=== PATIENT | male | born 1940 | race Caucasian/White ===

== ENCOUNTER → 2018-07-28 06:24 | Outpatient (CLI) | payer MEDICARE, OTHER, SELFPAY ==
[2018-07-28 07:40] LABS: AST(SGOT) 36 U/L (15-37); Alanine Aminotransfer ALT/SGPT 32 U/L (16-61); Albumin, Serum 3.6 g/dL (3.2-5.0); Alkaline Phosphatase 80 U/L (45-117); Cholesterol 135 mg/dL (200); Globulin 3.4 g/dL (2.2-4.2); High Density Lipoprotein 49 mg/dL; Triglycerides 89 mg/dL; Very Low Density Lipoprotein 18 mg/dL (5-40)
--- NOTE | 2018-07-28 11:21 | STRESSREP ---
Stress Test Report Exercise myocardial perfusion stress test. 77-year-old man with a history of coronary artery disease status post carotid bypass surgery. Stress protocol: Resting EKG demonstrates normal sinus rhythm with a rate of 59 bpm normal intervals and noted resting blood pressure 148/78 mmHg. The patient exercised according to regular Chao protocol for total duration of 4 minutes attaining 104 bpm and 72% of maximum predicted heart rate and a workload of 5.8 metabolic equivalents. It was felt that he would not achieve target heart rate and so the test was switched to a pharmacologic myocardial perfusion stress test. 0.4 mg of regadenoson was then infused per usual protocol continuous EKG monitoring was performed. The maximum heart rate attained was 79 bpm which was 55% of maximum predicted heart rate. At rest and during infusion there were no ST or T wave changes noted suggest ischemia during stress testing no EKG changes were noted suggest ischemia. Myocardial perfusion protocol. 10.9 mCi of technetium 99m sestamibi was injected at rest. 0.4 mg of regadenoson was infused per usual protocol peak infusion 31.9 mCi of technetium 99m sestamibi was injected stress images were obtained stress and rest images were reconstructed and compared in the short axis vertical long horizontal long axis. Gated images were also obtained Perfusion SPECT analysis: Review of the stress images demonstrate normal uptake of tracer noted in all areas of the myocardium. The resting images similarly demonstrate normal uptake of tracer noted in all areas of the myocardium. No areas of reversibility are noted suggest ischemia no previous infarct is noted. Gated SPECT analysis: The gated ejection fraction is 67%. Conclusion: Normal pharmacologic myocardial perfusion stress test. Preserved ejection fraction.
== END ==
PROVIDERS: Family Provider Family Medicine; PCP Family Medicine; Referring Provider Internal Medicine Cardiovascular Disease; Visit Provider Internal Medicine Cardiovascular Disease
DX: I25.10 Atherosclerotic heart disease of native coronary artery without angina pectoris (principal); E78.5 Hyperlipidemia, unspecified; Z95.1 Presence of aortocoronary bypass graft
CPT/HCPCS: 36415; 78452; 80061; 80076; 93017; A9500; A4216; J2785

== ENCOUNTER → 2019-06-24 09:09 | Outpatient (CLI) | payer MEDICARE, OTHER, SELFPAY ==
[2018-07-10 13:21] VITALS: BMI 21.5
[2019-06-24 09:56] LABS: Hematocrit 38.3 % (40-54); Hemoglobin 12.3 g/dL (13.0-16.5); Mean Corp Hgb Conc 32.1 g/dL (32-36); Mean Corpuscular Hgb 32.5 pg (27.0-32.0); Mean Corpuscular Volume 101.3 fL (80-94); Platelet Count 181 K/mm3 (150-450); RBC Distribution Width CV 12.6 % (11.6-14.6); RBC Distribution Width SD 47.8 fl (35.1-43.9); Red Blood Count 3.78 M/mm3 (4.6-6.2); White Blood Count 6.1 K/mm3 (4.4-11.0)
[2019-06-24 10:17] LABS: Microalbumin,Random Urine 10.1 mg/L (NO RANGE EST.); Microalbumin:Creatinine Ratio 10.1 mg/g CRE (<30 mg/g CRE)
[2019-06-24 10:38] LABS: ALB/GLOB Ratio 1.1 RATIO (0.9-2.4); AST(SGOT) 18 U/L (15-37); Alanine Aminotransfer ALT/SGPT 17 U/L (16-61); Albumin, Serum 3.5 g/dL (3.2-5.0); Alkaline Phosphatase 75 U/L (45-117); Anion Gap 7 (5-15); BUN 9 mg/dL (7-18); BUN/Creat Ratio 12.1 RATIO (10-20); Calcium,Total 8.7 mg/dL (8.5-10.1); Chloride 108 mmol/L (98-107); Cholesterol 128 mg/dL (200); Creatinine, Serum 0.74 mg/dL (0.70-1.30); EST Glomerular Filtration Rate 108 mL/min (>60); Est Glom Filt Rate - Afr Amer 130 mL/min (>60); Globulin 3.3 g/dL (2.2-4.2); Glucose 101 mg/dL (74-106); High Density Lipoprotein 57 mg/dL; Potassium 4.3 mmol/L (3.5-5.1); Protein, Total 6.8 g/dL (6.4-8.2); Sodium Level 143 mmol/L (136-145); Triglycerides 67 mg/dL; Very Low Density Lipoprotein 13 mg/dL (5-40)
== END ==
PROVIDERS: Family Provider Family Medicine; PCP Family Medicine; Referring Provider Family Medicine; Visit Provider Family Medicine
DX: I10 Essential (primary) hypertension (principal); E78.5 Hyperlipidemia, unspecified; D64.9 Anemia, unspecified
CPT/HCPCS: 36415; 80053; 80061; 82043; 82570; 85027

== ENCOUNTER → 2019-07-06 14:58 | Outpatient (CLI) | payer MEDICARE, OTHER, SELFPAY ==
--- NOTE | 2019-07-06 15:01 | CT_ITS ---
STUDY: LOW DOSE CT LUNG CANCER SCREENING REASON FOR EXAM: Male, 78 years old. 30 pack-year history. RADIATION DOSAGE (If Supplied By Facility): CTDIvol = ( 2.01 ) mGy, DLP = ( 78.76 ) mGycm TECHNIQUE: No contrast was administered. Low dose technique was utilized (average mAS-38 and kVp 120). 1.25 mm axial source images with a slice interval of 1.25-mm were reconstructed in lung windows. 2.5 mm axial source images with a slice interval of 2.5-mm were reconstructed in lung windows. 5.0 mm axial source images with a slice interval of 5.0-mm were reconstructed in soft tissue windows. Nodule measured using lung windows on PACS and/or independent workstation with automated measurement of minimum and maximum diameter. Nodule measurement reported as average diameter rounded to the nearest whole number. Growth is defined as an increase ins size of greater than 1.5 mm. COMPARISON: June 11, 2016. NODULES: Total lung nodules (excluding granulomas): 0 Emphysema: There are diffuse emphysematous changes with mild bronchiectasis at the lung bases. Endobronchial lesion: No Aorta: Atherosclerotic changes without aneurysm or dissection. Coronary arteries: Diffuse coronary artery calcifications. Heart: Normal in size Pulmonary artery: Normal Mediastinal nodes: There are small prevascular AP window and paratracheal lymph nodes unchanged from prior study. Other chest and abdominal findings: There are degenerative changes of the thoracic spine. CT/Low Dose CT Lung Screening IMPRESSION: Lung-RADS category 1 - Continue annual screening with LDCT in 12 months. IMPORTANT NOTES FOR USE: ACR Lung-RADS Version 1.0 Assessment Categories Release Date: February 22, 2014 Category: Coded 0-4 bases on nodule(s) with highest degree of suspicion. Negative screen is defined as categories 1 and 2; a positive screen is defined as categories 3 and 4. Category 3 and 4A nodules that are unchanged on interval CT should be coded as category 2, and individuals returned to screening in 12 months. Category 4X: Category 3 or 4 nodules with additional imaging findings that increase the suspicion of lung cancer, such as spiculation, GGN that doubles in size in 1 year, enlarged lymph notes, etc. Category Modifiers: S (significant finding unrelated to lung cancer) and C (prior history of treated lung cancer) may be added to the 0-4 Lung-RADS Electronically Signed: Eliseo Morris DO at 16:55 EDT Tel [phone], Service support ,
== END ==
PROVIDERS: Family Provider Family Medicine; PCP Family Medicine; Referring Provider Family Medicine; Visit Provider Family Medicine
DX: Z12.2 Encounter for screening for malignant neoplasm of respiratory organs (principal); Z87.891 Personal history of nicotine dependence
CPT/HCPCS: G0297

== ENCOUNTER → 2019-12-23 16:01 | Outpatient (CLI) | payer MEDICARE, OTHER, SELFPAY ==
[2019-07-07 10:05] VITALS: BMI 21.5
[2019-12-23 17:30] LABS: Hematocrit 36.9 % (40-54); Hemoglobin 11.9 g/dL (13.0-16.5); Mean Corp Hgb Conc 32.2 g/dL (32-36); Mean Corpuscular Volume 102.2 fL (80-94); Mean Platelet Vol. 11.2 fl (6.2-12.0); Platelet Count 176 K/mm3 (150-450); RBC Distribution Width SD 45.1 fl (35.1-43.9); Red Blood Count 3.61 M/mm3 (4.6-6.2)
[2019-12-23 18:07] LABS: Microalbumin,Random Urine 16.1 mg/L (NO RANGE EST.); Microalbumin:Creatinine Ratio 9.4 mg/g CRE (<30 mg/g CRE)
[2019-12-23 18:10] LABS: ALB/GLOB Ratio 1.3 RATIO (0.9-2.4); AST(SGOT) 19 U/L (15-37); Alanine Aminotransfer ALT/SGPT 24 U/L (16-61); Albumin, Serum 3.8 g/dL (3.2-5.0); Alkaline Phosphatase 77 U/L (45-117); Anion Gap 4 (5-15); BUN 12 mg/dL (7-18); BUN/Creat Ratio 13.3 RATIO (10-20); Calcium,Total 8.5 mg/dL (8.5-10.1); Chloride 110 mmol/L (98-107); EST Glomerular Filtration Rate 87 mL/min (>60); Est Glom Filt Rate - Afr Amer 105 mL/min (>60); Globulin 2.9 g/dL (2.2-4.2); Glucose 89 mg/dL (74-106); Potassium 3.9 mmol/L (3.5-5.1); Protein, Total 6.7 g/dL (6.4-8.2); Sodium Level 141 mmol/L (136-145)
== END ==
PROVIDERS: PCP Family Medicine; Referring Provider Family Medicine; Visit Provider Family Medicine
DX: I25.10 Atherosclerotic heart disease of native coronary artery without angina pectoris (principal); I10 Essential (primary) hypertension
CPT/HCPCS: 36415; 80053; 82043; 82570; 85027

== ENCOUNTER → 2019-12-30 17:08 | Outpatient (CLI) | payer MEDICARE, OTHER, SELFPAY ==
[2019-07-07 10:05] VITALS: BMI 21.5
--- NOTE | 2019-12-30 17:12 | CT_ITS ---
STUDY: CT CHEST WITHOUT CONTRAST- LOW DOSE SCREENING PROTOCOL REASON FOR EXAM: Male, 79 years old. Current smoker. 50 pack per year history. No current symptoms of lung cancer or pulmonary infection. Shared decision-making with referring PCP documented in patient''s record. RADIATION DOSAGE (If Supplied By Facility): CTDIvol = ( 2.01 ) mGy, DLP = ( 72.73 ) mGycm TECHNIQUE: Low dose screening CT examination performed from the base of the neck to the upper abdomen. Sagittal and coronal reformatted images performed. Sagittal and coronal MIP images provided. The measurements provided are average, rounded measurements per ACR guidelines. COMPARISON: None. FINDINGS: Status post median sternotomy. Mild emphysematous changes. Mild bilateral apical scarring. No noncalcified nodule or mass. Elevated left hemidiaphragm with some left lower lobe atelectasis. Normal heart and pericardium. There are calcifications of the coronary arteries. Normal mediastinum. Normal hilar regions. Normal unenhanced pulmonary arteries. Normal aorta arch and descending thoracic aorta. Normal osseous structures. There is no demonstrated abnormality of the visualized upper abdomen. CT/Low Dose CT Lung Screening IMPRESSION: 1. No significant indeterminate incidental findings requiring additional imaging. 2. Incidental findings include mild emphysematous changes in bilateral apical scarring.. ASSESSMENT CATEGORY: LungRADS 1 - Negative. Continue annual screening with LDCT in 12 months, per established ACR guidelines. Electronically Signed: Troy Stark MD at 8:30 EST Tel , Service support ,
== END ==
PROVIDERS: PCP Family Medicine; Referring Provider Family Medicine; Visit Provider Family Medicine
DX: F17.210 Nicotine dependence, cigarettes, uncomplicated (principal)
CPT/HCPCS: G0297

== ENCOUNTER → 2020-05-16 | Outpatient (CLI) | payer MEDICARE, OTHER, SELFPAY ==
[2020-05-04 11:38] VITALS: BMI 22.0
--- NOTE | 2020-05-16 09:50 | CDU_ITS ---
Reason For Study: Stenosis Rt. Velocities/BP Lt. Velocities/BP Prox CCA 105/20 cm/sec. Prox CCA 103/15 cm/sec. Mid CCA 123/23 cm/sec. Mid CCA 79/17 cm/sec. Dist CCA 164/27 cm/sec. Dist CCA 110/23 cm/sec. Prox ICA 197/29 cm/sec. Prox ICA 142/21 cm/sec. Mid ICA 138/19 cm/sec. Mid ICA 100/24 cm/sec. Dist ICA 92/20 cm/sec. Dist ICA 88/23 cm/sec. Rt. ICA/CCA = 1.60. Lt. ICA/CCA = 1.80. Prox ECA 179/12 cm/sec. Prox ECA 133/8 cm/sec. Rt. Vert. 16 cm/sec. Lt. Vert. 66/16 cm/sec. Right Extracranial There is heterogeneous, irregular atherosclerotic plaque noted in the right common carotid artery. There is heterogeneous, irregular atherosclerotic plaque noted in the right internal carotid artery. There is heterogeneous, irregular atherosclerotic plaque noted in the right external carotid artery. Bidirectional flow noted Rt Vert A. Left Extracranial There is heterogeneous, irregular atherosclerotic plaque noted in the left common carotid artery. There is heterogeneous, irregular atherosclerotic plaque noted in the left internal carotid artery. There is heterogeneous, irregular atherosclerotic plaque noted in the left external carotid artery. Antegrade flow is noted in the left vertebral artery. Procedure Carotid Duplex 20750. Exam performed in department. Interpretation Summary Moderate (50-69%) stenosis right extracranial internal carotid. Moderate (50-69%) stenosis left extracranial internal carotid. Flow within the right verterbral artery is bidirectional, consistent with a subclavian steal phenomenon. Flow within the left verterbral artery is antegrade. Ordering Physician: Arnav Zamora Referring Physician: Aj Nazario Performed By: Stacy Swenson, RDCS, RVT
== END | disposition home or self-care (01) ==
LOC: CVS 09:50
PROVIDERS: PCP Family Medicine; Referring Provider Internal Medicine Cardiovascular Disease; Visit Provider Internal Medicine Cardiovascular Disease
DX: I65.23 Occlusion and stenosis of bilateral carotid arteries (principal); I25.10 Atherosclerotic heart disease of native coronary artery without angina pectoris; E78.5 Hyperlipidemia, unspecified; F17.200 Nicotine dependence, unspecified, uncomplicated; I10 Essential (primary) hypertension; Z95.1 Presence of aortocoronary bypass graft
CPT/HCPCS: 93880

== ENCOUNTER 2021-07-16 09:02 | Inpatient (IN) | payer MEDICARE, OTHER, SELFPAY ==
[2021-07-16] VITALS (21 sets, daily range): BP systolic 82–127; BP diastolic 49–78; PULSE 68–120; RESP 14–34; TEMP 35.9–37; O2SAT 83–100; BMI 22.1; BMI 20.4
--- NOTE | 2021-07-16 09:04 | ED.RN ---
DAUGHTER JOSEPHINE REYES [phone]
--- NOTE | 2021-07-16 09:20 | RAD_ITS ---
STUDY: X-RAY CHEST REASON FOR EXAM: Male, 80 years old. SOB TECHNIQUE: Single AP portable view of the chest. COMPARISON: None. FINDINGS: Status post median sternotomy. Patchy alveolar opacities in both lungs consistent with bilateral pneumonia. There is no demonstrated pleural abnormality. Normal size heart. Normal mediastinum and kristi. Normal visualized pulmonary arteries. Normal visualized aortic arch and descending thoracic aorta. Normal visualized thoracic spine. Normal visualized ribs, clavicles, and shoulders. There is no demonstrated abnormality of the visualized soft tissue structures of the upper abdomen. RAD/Chest 1 View (Portable) IMPRESSION: Patchy bilateral pneumonia. Electronically Signed: Troy Stark MD at 10:16 EDT Tel , Service support ,
--- NOTE | 2021-07-16 09:20 | EKG12_ITS ---
Test Reason : SOB Blood Pressure : / mmHG Vent. Rate : 073 BPM Atrial Rate : 073 BPM P-R Int : 166 ms QRS Dur : 076 ms QT Int : 410 ms P-R-T Axes : 053 -24 023 degrees QTc Int : 451 ms Normal sinus rhythm Normal ECG Confirmed by DEMETRA GARAY, NEELIMA ([id number]), editor farm journal MATT TONG ([id number]) on 07/18/2021 1:44:14 PM Referred By: RIRI Confirmed By:NEELIMA MCCRARY MD
--- NOTE | 2021-07-16 09:49 | EX.ED.DYSGE1 ---
HPI History of Present Illness Chief Complaint: Shortness of Breath Informant: patient and EMS Narrative Narrative: Patient presents via EMS secondary to increased shortness of breath. He is reportedly a known positive Covid. Patient is confused and is unable to tell me when he tested positive for Covid or when he got symptoms. He denies abdominal or chest pain. He does report cough and shortness of breath. [facility] Medical History (Updated 07/16/21 @ 15:[address] Arnav Galvez DO) Atherosclerosis of coronary artery of [place] heart without angina pectoris Bilateral carotid artery stenosis COPD (chronic obstructive pulmonary disease) Essential (primary) hypertension HLD (hyperlipidemia) Nicotine dependence Home Medications aspirin 81 mg tablet,delayed release 81 mg PO DAILY 05/04/20 [History Last Taken Unknown] rosuvastatin 40 mg tablet 20 mg PO DAILY tab 05/04/20 [History Last Taken Unknown] metoprolol succinate 25 mg tablet,extended release 24 hr 25 mg PO DAILY #90 tab 04/28/21 [Rx Last Taken Unknown] Allergy/AdvReac Type Severity Reaction Status Date / Time No Known Allergies Allergy Unverified 01/30/21 11:30 Family History Father CAD (coronary artery disease) Hypertension Mother Hypertension Brother CAD (coronary artery disease) Surgical History 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) History of tonsillectomy Social History Smoking Status: Current every day smoker tobacco type: cigarettes alcohol intake: former ROS ROS ED Review of Systems ROS Unobtainable: due to mental condition and other Details: Patient with confusion and difficult to obtain any review of systems. Cardiovascular Cardiovascular: Denies chest pain Respiratory/Chest Respiratory/Chest: Reports cough and dyspnea Gastrointestinal Gastrointestinal: Denies abdominal pain EXAM Physical Exam Const Vital Signs: 07/16/21 09:05 07/16/21 09:07 07/16/21 09:12 Temperature 98.2 F Temperature Source Oral Pulse Rate 84 Respiratory Rate 34 H Respiratory Effort Respiratory Depth Respiratory Pattern Blood Pressure 125/73 H Blood Pressure Mean 90 Pulse Ox 83 84 92 Oxygen Delivery Method Room Air Nasal Cannula Nasal Cannula Oxygen Flow Rate (L/min) 4 4 07/16/21 09:51 07/16/21 11:43 07/16/21 12:52 Temperature 98.4 F Temperature Source Oral Pulse Rate 120 H 119 H Respiratory Rate 20 H 22 H 22 H Respiratory Effort Short of Breath Labored Accessory Muscle Use Respiratory Depth Shallow Respiratory Pattern Tachypnea Blood Pressure 94/74 82/69 L Blood Pressure Mean 80 73 Pulse Ox 93 97 92 Oxygen Delivery Method Nasal Cannula Nasal Cannula Nasal Cannula Oxygen Flow Rate (L/min) 4 6 6 07/16/21 14:23 07/16/21 14:32 Temperature 98.6 F Temperature Source Oral Pulse Rate 113 H 82 Respiratory Rate 28 H 20 H Respiratory Effort Respiratory Depth Respiratory Pattern Blood Pressure 93/63 86/49 L Blood Pressure Mean 73 61 Pulse Ox 94 95 Oxygen Delivery Method Nasal Cannula Nasal Cannula Oxygen Flow Rate (L/min) 5 6 Positive well nourished and well developed General Appearance ED: well developed Eyes PERRL and EOMs intact bilaterally Neck supple Chest Wall inspection of chest normal and palpation of chest normal Resp Resp Narrative: Tachypnea Auscultation: diminished lung sounds Cardio regular rate and regular rhythm GI normal to inspection, nondistended, normoactive bowel sounds and non-tender Palpation: soft Extremity normal to inspection Neuro No oriented x3 Neuro Narrative: No focal neurologic deficits. Patient confused. Sensorium / Orientation: alert Skin no rashes or lesions noted MDM MDM MDM Narrative Medical decision making narrative: EKG, chest x-ray, lab work obtained. Lab Data Attestation: I reviewed the patient's lab results. Labs: Laboratory Results - last 24 hr 07/16/21 07/16/21 07/16/21 09:44 10:12 10:12 WBC 3.7 L RBC 3.50 L Hgb 11.7 L Hct 35.8 L MCV 102.3 H MCH 33.4 H MCHC 32.7 RDW Std Deviation 46.7 H RDW Coeff of Jakub 12.5 Plt Count 102 L MPV 11.3 Immature Gran % (Auto) 0.300 Neut % (Auto) 80.2 H Lymph % (Auto) 9.6 L [place] % (Auto) 9.9 Eos % (Auto) 0.0 Baso % (Auto) 0.0 Absolute Neuts (auto) 2.9 Absolute Lymphs (auto) 0.35 L Nucleated RBC % 0 Diff Path Review May foll Platelet Estimate SLT DEC Hypochromasia RARE Macrocytosis 1+ D-Dimer Quant (PE/DVT) Sodium 140 Potassium 3.8 Chloride 106 Carbon Dioxide 28.0 Anion Gap 6 BUN 16 Creatinine 0.84 Estim Creat Clear Calc 67.66 Est GFR (MDRD) Af Amer 114 Est GFR (MDRD) Non-Af 94 BUN/Creatinine Ratio 19.2 Glucose 155 H Lactic Acid Calcium 8.1 L Total Bilirubin 0.30 Direct Bilirubin 0.19 AST 57 H ALT 23 Alkaline Phosphatase 58 Troponin I High Sens 18 Total Protein 6.7 Albumin 3.0 L Globulin 3.7 Urine Color Yellow Urine Clarity Clear Urine pH 5.0 Ur Specific [place] 1.020 Urine Protein 100 H Urine Glucose (UA) 50 H Urine Ketones 150 A* Urine Occult Blood 150 H Urine Nitrite Negative Urine Bilirubin Negative Urine Urobilinogen Normal Ur Leukocyte Esterase Negative Urine RBC 5-10 SEEN Urine WBC 0 SEEN Ur Squamous Epith Cells 0-5 SEEN Urine Bacteria RARE Urine Mucus 0 SEEN 07/16/21 07/16/21 07/16/21 10:12 10:12 14:30 WBC RBC Hgb Hct MCV MCH MCHC RDW Std Deviation RDW Coeff of Jakub Plt Count MPV Immature Gran % (Auto) Neut % (Auto) Lymph % (Auto) [place] % (Auto) Eos % (Auto) Baso % (Auto) Absolute Neuts (auto) Absolute Lymphs (auto) Nucleated RBC % Diff Path Review Platelet Estimate Hypochromasia Macrocytosis D-Dimer Quant (PE/DVT) 1.11 H* Sodium Potassium Chloride Carbon Dioxide Anion Gap BUN Creatinine Estim Creat Clear Calc Est GFR (MDRD) Af Amer Est GFR (MDRD) Non-Af BUN/Creatinine Ratio Glucose Lactic Acid 2.3 H* Cancelled Calcium Total Bilirubin Direct Bilirubin AST ALT Alkaline Phosphatase Troponin I High Sens Total Protein Albumin Globulin Urine Color Urine Clarity Urine pH Ur Specific [place] Urine Protein Urine Glucose (UA) Urine Ketones Urine Occult Blood Urine Nitrite Urine Bilirubin Urine Urobilinogen Ur Leukocyte Esterase Urine RBC Urine WBC Ur Squamous Epith Cells Urine Bacteria Urine Mucus Rapid Covid test positive Radiography Chest X-Ray - ED: 1 View, Read by ED Physician, Chronic Changes and - (Chronic changes with patchy infiltrates.) Diagnostic Testing: Radiology Impression Chest X-Ray 07/16/21 09:20 IMPRESSION: Patchy bilateral pneumonia. Electronically Signed: Troy Stark MD at 10:16 EDT Tel , Service support , Chest CTA 07/16/21 10:[address] IMPRESSION: 1. No CT evidence of pulmonary embolism. 2. Bilateral subsegmental atelectasis or pneumonitis with left lower lobe pneumonia. Electronically Signed: Troy Stark MD at 12:48 EDT Tel , Service support , EKG Initial EKG: Attestation: I personally reviewed and interpreted this EKG as follows: Interpretation: Sinus Rhythm (Sinus at 73 with no acute ischemia.) Treatment and Re-Evaluation Comments:: Patient has been very confused in the emergency room and keeps wanting to take the cardiac leads off. He is agitated and intermittently trying to crawl out of bed. Lab work is reviewed. Renal function is normal. Lactic acid is mildly elevated. D-dimer is elevated. Patient is sent for CTA of the chest which reveals no evidence of PE. Patient has been in and out of atrial fibrillation. Heart rate will go up to the 120-130 range. With this blood pressure is slightly decreased into the 90s. Patient is given a 500 cc IV fluid bolus. Blood pressure is currently 111/76. Repeat EKG will be obtained. Once IV fluid bolus is done if heart rate remains elevated he received a small dose of metoprolol. Patient has been given a dose of Decadron and will be discussed with hospitalist for admission. Addendum: Patient's heart rate continue to fluctuate between 108 and 140s. Another 500 cc IV fluid bolus was ordered along with a small dose of Cardizem. Before this could be given patient converted back to sinus rhythm with heart rate in the 80s and 90s. Cardizem was never given. Discharge Plan Dx/Rx/DC Orders Clinical Impression: COVID-19, Hypoxia, New onset a-fib, Atrial fibrillation with rapid ventricular response Disposition Disposition: Acute Care Hospital [facility] Discharge Date/Time: 07/16/21 15:49
[2021-07-16 10:02] LABS: Mucous, Urine 0 SEEN /hpf (<or=2+); White Blood Cells 0 SEEN /hpf (0-5)
[2021-07-16 10:03] LABS: Color, Urine Yellow (Yellow); Glucose, Dipstick 50 mg/dl (Normal); Leukocyte Esterase-Dipstick Negative /ul (Negative); Nitrite-Dipstick Negative (Negative); Occult Blood-Urine 150 /ul (Negative); Protein-Dipstick 100 mg/dl (Negative); Urine Bilirubin Dipstick Negative (Negative); Urine Clarity Clear (Clear); Urine Urobilinogen Normal (Normal)
[2021-07-16 10:05] LABS: Ketone-Dipstick 150 mg/dl (Negative)
[2021-07-16 10:11] LABS: Bacteria RARE /hpf (None Seen); Red Blood Cells-Urine 5-10 SEEN /hpf (0-5); Squamous Epithelial Cells - UA 0-5 SEEN /hpf (0-5)
[2021-07-16 10:24] LABS: Absolute Lymphocyte Count 0.35 X10^3/uL (0.83-4.51); Absolute Neutrophil Count 2.9 X10^3/uL (2.0-7.7); Differential Indicated SCAN CRITERIA MET; Hematocrit 35.8 % (40-54); Hemoglobin 11.7 g/dL (13.0-16.5); Lymphocyte # 0.35 X10^3/ul (0.83-4.51); Lymphocyte % 9.6 % (19-41); Mean Corp Hgb Conc 32.7 g/dL (32-36); Mean Corpuscular Hgb 33.4 pg (27.0-32.0); Mean Corpuscular Volume 102.3 fL (80-94); Mean Platelet Vol. 11.3 fl (6.2-12.0); Monocyte# 0.36 X10^3/uL; Monocyte% 9.9 % (0-10); NRBC Flagged by Analyzer 0 % (0-5); Neutrophil # 2.93 X10^3/uL (2.7-7.7); Neutrophil % 80.2 % (47-70); POSITIVE DIFFERENTIAL YES; Platelet Count 102 K/mm3 (150-450); RBC Distribution Width CV 12.5 % (11.6-14.6); RBC Distribution Width SD 46.7 fl (35.1-43.9); White Blood Count 3.7 K/mm3 (4.4-11.0)
[2021-07-16 10:35] LABS: D-Dimer Quantitative (DVT/PE) 1.11 FEU/ug/m (0.27-0.49)
[2021-07-16] MEDS: dexAMETHasone 4 MG/ML Vial 6 MG IV (10:35)
[2021-07-16 10:43] LABS: AST(SGOT) 57 U/L (15-37); Alanine Aminotransfer ALT/SGPT 23 U/L (16-61); Alkaline Phosphatase 58 U/L (45-117); Anion Gap 6 (5-15); BUN 16 mg/dL (7-18); BUN/Creat Ratio 19.2 RATIO (10-20); Bilirubin, Direct 0.19 mg/dL (0.00-0.30); Calcium,Total 8.1 mg/dL (8.5-10.1); Chloride 106 mmol/L (98-107); Creatinine, Serum 0.84 mg/dL (0.70-1.30); EST Glomerular Filtration Rate 94 mL/min (>60); Est Glom Filt Rate - Afr Amer 114 mL/min (>60); Estimated Creatinine Clearance 67.66 ml/min; Globulin 3.7 g/dL (2.2-4.2); Glucose 155 mg/dL (74-106); Potassium 3.8 mmol/L (3.5-5.1); Protein, Total 6.7 g/dL (6.4-8.2); Sodium Level 140 mmol/L (136-145); Troponin-I HS 18 pg/mL (3.0-78.0)
[2021-07-16 10:44] LABS: Hypochromasia RARE; Macrocytosis 1+; Platelet Estimate SLT DEC (ADEQ)
[2021-07-16 10:50] LABS: Lactic Acid 2.3 mmol/L (0.4-1.9)
--- NOTE | 2021-07-16 10:56 | CT_ITS ---
STUDY: CTA CHEST REASON FOR EXAM: Male, 80 years old. sob,covid RADIATION DOSAGE (If Supplied By Facility): CTDIvol = ( 12.36 ) mGy, DLP = ( 462.95 ) mGycm TECHNIQUE: The examination was performed with the intravenous administration of IV 100mL Isovue-370. Post-processing of the angiographic images was performed, with multiplanar reformation and 3D reconstruction. Individualized dose optimization techniques were used for this CT. COMPARISON: Chest x-ray earlier today FINDINGS: Status post median sternotomy. Normal enhancement of the main pulmonary artery and right and left pulmonary arteries. Normal enhancement of the bilateral peripheral pulmonary arteries. There is no demonstrated pulmonary embolism. Normal thoracic aorta and visualized great vessels. There is no demonstrated aortic dissection. Normal heart and pericardium. Normal mediastinum. Normal hilar regions. Mild diffuse central bronchiectasis. The lungs are well expanded. Bilateral patchy groundglass opacities consistent with subsegmental atelectasis or pneumonitis. Alveolar density in the lower left lung consistent with left lower lobe pneumonia. Normal pleura. Normal chest wall structures. Normal osseous structures. Normal visualized upper abdomen. CT/CTA Chest W/WO Contrast IMPRESSION: 1. No CT evidence of pulmonary embolism. 2. Bilateral subsegmental atelectasis or pneumonitis with left lower lobe pneumonia. Electronically Signed: Troy Stark MD at 12:48 EDT Tel , Service support ,
--- NOTE | 2021-07-16 13:28 | NURSING ---
DR ALCANTARA FOR DR MENEZES
--- NOTE | 2021-07-16 13:41 | NURSING ---
ICU [facility]INT[facility] COVID, HYPOXIA, AFIB RVR, CONFUSION
--- NOTE | 2021-07-16 14:00 | EKG12_ITS ---
Test Reason : REPEAT Blood Pressure : / mmHG Vent. Rate : 108 BPM Atrial Rate : 060 BPM P-R Int : 000 ms QRS Dur : 086 ms QT Int : 366 ms P-R-T Axes : 000 -21 045 degrees QTc Int : 490 ms Atrial Fibrillation Nonspecific ST and T wave abnormality Abnormal ECG Confirmed by DEMETRA GARAY, NEELIMA ([id number]), photography editor MATT TONG ([id number]) on 07/18/2021 1:44:51 PM Referred By: RIRI Confirmed By:NEELIMA MCCRARY MD
--- NOTE | 2021-07-16 14:17 | NURSING ---
ICU 3
[2021-07-16 14:19] LABS: Reflex Lactate? Y
--- NOTE | 2021-07-16 14:55 | PCM.HP.STD ---
HPI - General General Date of Admission: 07/16/21 HPI Narrative JUNIOR MYLES, is a 80 M who presents with 9 days of feeling sick. Patient has been more confused and short of breath. Patient presented to the emergency room and notably hypoxic. While he was there he developed atrial fibrillation with RVR and hypotension. In the emergency room, patient received 6 mg of IV dexamethasone 1 L of IV fluids total and a 10 mg of IV diltiazem. Hospitalist service was contacted for further admission and management. Patient did have hypotension. Patient is also confused and unable provide any history. I was able to get hold the patient's daughter, Vernell. She states the patient has been sick for 9 days and he has just progressively gotten worse during this time. She states that normally he is very alert and oriented and witty. This is a significant change for him. She states that the patient was not vaccinated. [facility] Medical History (Updated 07/16/21 @ 15:[address] Arnav Galvez DO) Atherosclerosis of coronary artery of [place] heart without angina pectoris Bilateral carotid artery stenosis COPD (chronic obstructive pulmonary disease) Essential (primary) hypertension HLD (hyperlipidemia) Nicotine dependence Home Medications aspirin 81 mg tablet,delayed release 81 mg PO DAILY 05/04/20 [History Last Taken Unknown] rosuvastatin 40 mg tablet 20 mg PO DAILY tab 05/04/20 [History Last Taken Unknown] metoprolol succinate 25 mg tablet,extended release 24 hr 25 mg PO DAILY #90 tab 04/28/21 [Rx Last Taken Unknown] Allergy/AdvReac Type Severity Reaction Status Date / Time No Known Allergies Allergy Unverified 01/30/21 11:30 Family History Father CAD (coronary artery disease) Hypertension Mother Hypertension Brother CAD (coronary artery disease) Surgical History 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) History of tonsillectomy Social History Smoking Status: Current every day smoker tobacco type: cigarettes alcohol intake: former ROS Review of Systems ROS Unobtainable: due to encephalopathy Vital Signs Vital Signs Vital Signs: 07/16/21 09:05 07/16/21 09:07 07/16/21 09:12 Temperature 36.8 C Temperature Source Oral Pulse Rate 84 Respiratory Rate 34 H Respiratory Effort Respiratory Depth Respiratory Pattern Blood Pressure 125/73 H Blood Pressure Mean 90 Pulse Ox 83 84 92 Oxygen Delivery Method Room Air Nasal Cannula Nasal Cannula Oxygen Flow Rate (L/min) 4 4 07/16/21 09:51 07/16/21 11:43 07/16/21 12:52 Temperature 36.9 C Temperature Source Oral Pulse Rate 120 H 119 H Respiratory Rate 20 H 22 H 22 H Respiratory Effort Short of Breath Labored Accessory Muscle Use Respiratory Depth Shallow Respiratory Pattern Tachypnea Blood Pressure 94/74 82/69 L Blood Pressure Mean 80 73 Pulse Ox 93 97 92 Oxygen Delivery Method Nasal Cannula Nasal Cannula Nasal Cannula Oxygen Flow Rate (L/min) 4 6 6 07/16/21 14:23 07/16/21 14:32 Temperature 37.0 C Temperature Source Oral Pulse Rate 113 H 82 Respiratory Rate 28 H 20 H Respiratory Effort Respiratory Depth Respiratory Pattern Blood Pressure 93/63 86/49 L Blood Pressure Mean 73 61 Pulse Ox 94 95 Oxygen Delivery Method Nasal Cannula Nasal Cannula Oxygen Flow Rate (L/min) 5 6 Weight Weight: 68.2 kg Body Mass Index (BMI) 22.1 Physical Exam Const Constitutional Narrative: Afebrile. Patient was pulling off leads. Oriented to self only. Orientation / Consciousness: confused HEENT normocephalic and head/scalp atraumatic Eyes Eyes Narrative: No icterus Resp normal respiratory effort, no retractions, no use of accessory muscles and clear to auscultation bilaterally Cardio regular rate, regular rhythm, S1 normal heart sound and S2 normal heart sound GI normal to inspection, nondistended, normoactive bowel sounds, soft to palpation, non-tender and non-distended Extremity normal to inspection Skin no rashes or lesions noted and no wounds Neuro Sensorium / Orientation: awake and alert Psych Mood & Affect: anxious Results Lab / Micro Data Attestation: I reviewed the patient's lab results. Result Diagrams: 07/16/21 10:12 07/16/21 10:12 Labs: Laboratory Results - last 24 hr 07/16/21 09:44: Urine Color Yellow, Urine Clarity Clear, Urine pH 5.0, Ur Specific [place] 1.020, Urine Protein 100 H, Urine Glucose (UA) 50 H, Urine Ketones 150 A*, Urine Occult Blood 150 H, Urine Nitrite Negative, Urine Bilirubin Negative, Urine Urobilinogen Normal, Ur Leukocyte Esterase Negative, Urine RBC 5-10 SEEN, Urine WBC 0 SEEN, Ur Squamous Epith Cells 0-5 SEEN, Urine Bacteria RARE, Urine Mucus 0 SEEN 07/16/21 10:12: WBC 3.7 L, RBC 3.50 L, Hgb 11.7 L, Hct 35.8 L, MCV 102.3 H, MCH 33.4 H, MCHC 32.7, RDW Std Deviation 46.7 H, RDW Coeff of Jakub 12.5, Plt Count 102 L, MPV 11.3, Immature Gran % (Auto) 0.300, Neut % (Auto) 80.2 H, Lymph % (Auto) 9.6 L, [place] % (Auto) 9.9, Eos % (Auto) 0.0, Baso % (Auto) 0.0, Absolute Neuts (auto) 2.9, Absolute Lymphs (auto) 0.35 L, Nucleated RBC % 0, Diff Path Review February, Platelet Estimate SLT DEC, Hypochromasia RARE, Macrocytosis 1+ 07/16/21 10:12: Sodium 140, Potassium 3.8, Chloride 106, Carbon Dioxide 28.0, Anion Gap 6, BUN 16, Creatinine 0.84, Estim Creat Clear Calc 67.66, Est GFR (MDRD) Af Amer 114, Est GFR (MDRD) Non-Af 94, BUN/Creatinine Ratio 19.2, Glucose 155 H, Calcium 8.1 L, Total Bilirubin 0.30, Direct Bilirubin 0.19, AST 57 H, ALT 23, Alkaline Phosphatase 58, Troponin I High Sens 18, Total Protein 6.7, Albumin 3.0 L, Globulin 3.7 07/16/21 10:12: D-Dimer Quant (PE/DVT) 1.11 H* 07/16/21 10:12: Lactic Acid 2.3 H* Micro: Microbiology 07/16/21 09:55 Nasal Secretion SARS-CoV-2 Antigen (Rapid) - Final SARS-CoV-2 (COVID 19) Radiology Impression Chest X-Ray 07/16/21 09:20 IMPRESSION: Patchy bilateral pneumonia. Electronically Signed: Troy Stark MD at 10:16 EDT Tel , Service support , Chest CTA 07/16/21 10:56 IMPRESSION: 1. No CT evidence of pulmonary embolism. 2. Bilateral subsegmental atelectasis or pneumonitis with left lower lobe pneumonia. Electronically Signed: Troy Stark MD at 12:48 EDT Tel , Service support , Assessment & Plan Assessment/Plan (1) COVID-19: (2) Atrial fibrillation with rapid ventricular response: (3) Hypotension: QUALIFIERS: Hypotension type: unspecified hypotension type Qualified Code(s): I95.9 - Hypotension, unspecified (4) Metabolic encephalopathy: PLAN: 1. Acute COVID-19 pneumonia Date of onset is July 07 Scan reviewed and showed diffuse groundglass patchy infiltrates throughout. Patient is unvaccinated Currently stable on 6 L though the patient is at risk for further decompensation Continue with dexamethasone and remdesivir 2. Acute hypoxic respiratory failure Secondary to above Stable on 6liters Wean if able, though I am concerned for decompression 3. Atrial fibrillation with RVR new onset Likely brought on by the Covid and the respiratory failure Received IV dilt in ED. CHADS VASC 4, start therapeutic enoxaparin 4. Hypotension may need pressors monitor 5. metabolic encephalopathy per dtr: normally alert check CT 6. CAD hold metoprolol for now given hypotension 7. VTE prophylaxis: not indicated while anticoagulated 8. Code status: per dtr--full code. Charges/Coding Visit Charges Inpatient E&M: 42496 Init Hosp L3
[2021-07-16 16:17] LABS: Lactic Acid 2.8 mmol/L (0.4-1.9)
--- NOTE | 2021-07-16 16:45 | ED.RN ---
pt's family contacted and informed of admission to the hospital. talked to pt's daughter elida
--- NOTE | 2021-07-16 17:22 | ECHOL_ITS ---
Reason For Study: AFIB Procedure This was a limited 2D transthoracic echocardiogram. The study was technically limited. The study was technically difficult. PT was agitated, unable to cooperate, confused. Exam performed portable in ICU/CCU. The exam was abbreviated due to the COVID 19 protocol. Left Ventricle Normal LV size. Left ventricular systolic function is normal. The estimated ejection fraction is 60 %. No regional wall motion abnormalities noted. Right Ventricle Normal RV size. Atria Normal left atrium. Normal right atrium. Mitral Valve Normal mitral valve. Tricuspid Valve Normal tricuspid valve. Aortic Valve Trisinus/trileaflet aortic valve. Pulmonic Valve The pulmonic valve is not well visualized. Great Vessels Calcified aortic root. Pericardium/Pleural No pericardial effusion. MMode/2D Measurements & Calculations LVIDd: 3.6 cm IVSd: 0.94 cm Ao root diam: 2.9 cm LVIDs: 2.5 cm LVPWd: 1.1 cm LA dimension: 4.0 cm FS: 30.3 % LAV(MOD-bp): 53.5 ml LA A4 area: 18.7 cm2 RA A4 area: 14.6 cm2 LAV(MOD-bp) Indexed: 30.6 ml/m2 LAV(MOD-sp2): 50.5 ml LAV(MOD-sp4): 56.0 ml ECHO/Echo, Limited Study Interpretation Summary Normal LV size. Left ventricular systolic function is normal. The estimated ejection fraction is 60 %. The study was technically limited. Ordering Physician: Arnav Galvez Referring Physician: Arnav Zamora Performed By: Elaine Rice, LYNDA, RVT
--- NOTE | 2021-07-16 17:22 | CT_ITS ---
STUDY: CT BRAIN WITHOUT CONTRAST REASON FOR EXAM: Male, 80 years old. confusion RADIATION DOSAGE (If Supplied By Facility): CTDIvol = ( 44.99 ) mGy, DLP = ( 897.35 ) mGycm TECHNIQUE: Transaxial CT imaging of the brain was performed without administration of intravenous contrast material. Individualized dose optimization techniques were used for this CT. COMPARISON: No relevant priors. FINDINGS: There is no intra-/extra-axial fluid collection, mass effect, or midline shift. The wilson/white matter junction is preserved. Hypoattenuation of periventricular and subcortical white matter suggestive of chronic small vessel ischemic disease. Mild diffuse parenchymal volume loss is noted. There is vascular calcification. The basal cisterns are patent. Minimal mucoperiosteal thickening of the bilateral ethmoid air cells and left sphenoid sinus is seen.. The calvarium is intact. CT/Brain/Head without Contrast IMPRESSION: No acute intracranial finding. MRI may be obtained if clinically indicated. Electronically Signed: Hugh White MD at 18:37 EDT Tel , Service support ,
[2021-07-16 17:49] LABS: Alkaline Phosphatase 44 U/L (45-117)
[2021-07-16 18:47] LABS: Troponin-I HS 673 pg/mL (3.0-78.0)
[2021-07-16 19:22] LABS: Reflex Lactate? Y
[2021-07-16 20:37] LABS: Troponin-I HS 607 pg/mL (3.0-78.0)
[2021-07-16 20:41] LABS: Lactic Acid 4.1 mmol/L (0.4-1.9)
[2021-07-16] MEDS: Enoxaparin 60 MG/0.6 ML Syringe SC (21:00)
[2021-07-16] MEDS: 0.9% Saline Lock 10 ML Syringe IV ×2 (21:01→23:35)
--- NOTE | 2021-07-16 21:48 | RAD_ITS ---
INDICATION: Respiratory Decompensation EXAMINATION/TECHNIQUE: X-RAY - XR Chest 1 View COMPARISON: 07/16/2021 at 0 9:46 AM FINDINGS: LINES/DEVICES: None. Sternotomy wires with fractured superior wire. Overlying heart monitoring wires. LUNGS: Abnormal increased reticular opacities most notable in the left lower lobe and right midlung periphery. There is chronic elevation left hemidiaphragm. No pleural effusion or pneumothorax. MEDIASTINUM AND CARDIOVASCULAR STRUCTURES: Cardiac silhouette not enlarged. Central airways and mediastinal contour are unremarkable. BONES AND SOFT TISSUES: No lytic or blastic bone lesion. RAD/Chest 1 View (Portable) IMPRESSION: No appreciable change compared to prior exam with multifocal, reticular opacities and associated airspace disease likely representing infectious etiology with suspected fibrosis. Unchanged asymmetric elevation left hemidiaphragm. Electronically Signed: Jesús Jones DO at 23:53 EDT Tel , Service support ,
[2021-07-16] MEDS: Haloperidol Lactate 5 MG/ML Vial 2 MG IV (21:54)
[2021-07-16] MEDS: Furosemide 40 MG/4 ML Vial IV (21:59)
[2021-07-16 22:36] LABS: Allen Test Positive; Base Excess -3 mmol/L (-2 to +2); Bicarbonate 21.2 mmol/L (22-26); Blood Gas Specimen Type ART; O2 Delivery Device Cannula; PO2 48 mmHG (75-100); SITE Art Line; SO2 86 % (95-99); Total Carbon Dioxide 22 mmol/L; pCO2 30.5 mmHg (35-45); pH 7.45 (7.35-7.45)
[2021-07-16] MEDS: Haloperidol Lactate 5 MG/ML Vial 4 MG IV (23:24)
[2021-07-17] VITALS (26 sets, daily range): BP systolic 82–142; BP diastolic 41–74; PULSE 44–100; RESP 18–37; TEMP 2.7–37.6; O2SAT 86–98
[2021-07-17] MEDS: OLANZapine 5 MG/TAB TAB.RAPDIS BUCCAL (00:12)
[2021-07-17 00:39] LABS: Troponin-I HS 498 pg/mL (3.0-78.0)
[2021-07-17 04:51] LABS: Absolute Lymphocyte Count 0.56 X10^3/uL (0.83-4.51); Absolute Neutrophil Count 4.7 X10^3/uL (2.0-7.7); Basophil# 0.01 X10^3/uL; Basophil% 0.2 % (0-1); Hematocrit 34.2 % (40-54); Hemoglobin 10.9 g/dL (13.0-16.5); Lymphocyte # 0.56 X10^3/ul (0.83-4.51); Lymphocyte % 9.5 % (19-41); Mean Corp Hgb Conc 31.9 g/dL (32-36); Mean Corpuscular Hgb 33.5 pg (27.0-32.0); Mean Corpuscular Volume 105.2 fL (80-94); Mean Platelet Vol. 11.4 fl (6.2-12.0); Monocyte# 0.56 X10^3/uL; Monocyte% 9.5 % (0-10); NRBC Flagged by Analyzer 0 % (0-5); Neutrophil # 4.74 X10^3/uL (2.7-7.7); Neutrophil % 80.3 % (47-70); POSITIVE DIFFERENTIAL YES; Platelet Count 102 K/mm3 (150-450); RBC Distribution Width CV 12.4 % (11.6-14.6); RBC Distribution Width SD 48.5 fl (35.1-43.9); Red Blood Count 3.25 M/mm3 (4.6-6.2); White Blood Count 5.9 K/mm3 (4.4-11.0)
[2021-07-17 05:04] LABS: Differential Indicated SCAN CRITERIA MET
[2021-07-17 05:09] LABS: ALB/GLOB Ratio 0.7 RATIO (0.9-2.4); AST(SGOT) 73 U/L (15-37); Alanine Aminotransfer ALT/SGPT 21 U/L (16-61); Albumin, Serum 2.3 g/dL (3.2-5.0); Alkaline Phosphatase 57 U/L (45-117); Anion Gap 6 (5-15); BUN 16 mg/dL (7-18); BUN/Creat Ratio 21.8 RATIO (10-20); Calcium,Total 7.8 mg/dL (8.5-10.1); Chloride 107 mmol/L (98-107); Creatinine, Serum 0.73 mg/dL (0.70-1.30); EST Glomerular Filtration Rate 109 mL/min (>60); Est Glom Filt Rate - Afr Amer 132 mL/min (>60); Estimated Creatinine Clearance 51.25 ml/min; Globulin 3.4 g/dL (2.2-4.2); Glucose 183 mg/dL (74-106); Potassium 3.4 mmol/L (3.5-5.1); Protein, Total 5.7 g/dL (6.4-8.2); Sodium Level 140 mmol/L (136-145)
[2021-07-17] MEDS: TITRATION PARAMETER CHANGE 1 EACH IV (05:13)
[2021-07-17 05:24] LABS: Lactic Acid 1.7 mmol/L (0.4-1.9)
--- NOTE | 2021-07-17 06:32 | EX.PCM.CONCC ---
Assessment & Plan Assessment/Plan (1) COVID-19: (2) Hypoxia: PLAN: RECOMMENDATIONS: 1. Wean supplemental oxygen to maintain saturations at or above 90%. 2. Continue remdesivir to complete 5-day treatment course. Continue to monitor liver and renal function. 3. Continue Lovenox as ordered. 4. Continue Decadron to complete 10-day treatment course. 5. Intermittent use of diuretic therapy to maintain euvolemic state. 6. Potassium repletion. 7. Encourage incentive spirometer use and mobilize patient as tolerated. 8. Discontinue Precedex and Haldol, given bradycardia and QT prolongation. IMPRESSIONS: 1. Acute hypoxemic respiratory failure secondary to COVID-19 pneumonia The patient presented to the hospital with approximately 10 days of symptoms having tested positive for coronavirus approximately 1 week ago. He will be continued on supplemental oxygen to maintain saturations at or above 90%. Remdesivir will be continued to complete a 5-day treatment course. We will continue to monitor liver and renal function accordingly. Decadron will be continued to complete 10 days of therapy. Lovenox will be continued as ordered. Encourage incentive spirometer use and mobilize patient as tolerated. Intermittent use of diuretic therapy can be utilized to maintain euvolemic state. 2. Atrial fibrillation with RVR/sinus bradycardia/QT prolongation The patient was initially noted to be in atrial fibrillation with RVR while in the emergency department, which responded to Cardizem. The patient was subsequently placed on Precedex and Haldol to help address his agitation. As a consequence, the patient is now bradycardic with QT prolongation. Therefore, the aforementioned medications will be discontinued. 3. Encephalopathy Likely metabolic in etiology and related to #1. ICU delirium is also another consideration. Continue supportive measures. CT head was unremarkable. 4. Hypokalemia Electrolyte repletion as ordered. Recheck levels in the morning. 5. History of coronary artery disease status post CABG/carotid disease/history of tobacco dependency Complicates care, management, recovery and prognosis. Continue home medications as indicated. This note was generated with [employer] software. It may contain incorrect words, spelling, and punctuation that were not noted in checking the note before signing. HPI Consult Data Date of Consult: 07/17/21 HPI Narrative Reason for Consultation: Acute hypoxemic respiratory failure secondary to COVID-19 pneumonia HPI Narrative: The patient is an 80-year-old male, with a history as outlined below, who presented to the emergency department on July 16 via EMS due to increasing dyspnea and cough. According to documentation from the patient's daughter, today will constitute a 10 of the patient's symptoms, having tested positive for Covid approximately 1 week ago. The patient is unvaccinated. The patient does have a history of coronary artery disease status post CABG in 2007, carotid disease and tobacco abuse history. He is currently followed by Dr. Nazario in the cardiology clinic. On presentation to the emergency department, the patient was noted to be afebrile and hemodynamically stable. He was, nevertheless, tachypneic and hypoxemic. While in the emergency department, the patient was noted to be in an hour of atrial fibrillation with RVR. He was given a one-time bolus of Cardizem, which led to worship of normal sinus rhythm. D-dimer was elevated at 1.1. Arterial blood gas obtained on 5 L/min via nasal cannula revealed a pH of 7.45, PCO2 of 31 and PO2 of 48. Chemistry profile was largely unremarkable. Initial lactate was elevated to 2.3. Troponin peaked at 673. CTA chest showed no evidence for PE. Bilateral patchy groundglass opacities were noted, along with what appears to be a posterior based more confluent airspace consolidation. CT head revealed no acute intracranial finding. Rapid coronavirus antigen testing was positive. Blood cultures were collected. The patient was subsequently placed on remdesivir and Decadron. He was subsequently admitted to the medical intensive care unit for further management. Overnight, the patient became increasingly confused and difficult to redirect. Ultimately, he was placed on Precedex, after having received Haldol and Zyprexa. [facility] Medical History (Updated 07/16/21 @ 15:[address] Arnav Galvez, DO) Atherosclerosis of coronary artery of [place] heart without angina pectoris Bilateral carotid artery stenosis COPD (chronic obstructive pulmonary disease) Essential (primary) hypertension HLD (hyperlipidemia) Nicotine dependence Home Medications aspirin 81 mg tablet,delayed release 81 mg PO DAILY 05/04/20 [History Last Taken Unknown] rosuvastatin 40 mg tablet 20 mg PO DAILY tab 05/04/20 [History Last Taken Unknown] metoprolol succinate 25 mg tablet,extended release 24 hr 25 mg PO DAILY #90 tab 04/28/21 [Rx Last Taken Unknown] Allergy/AdvReac Type Severity Reaction Status Date / Time No Known Allergies Allergy Unverified 01/30/21 11:30 Family History Father CAD (coronary artery disease) Hypertension Mother Hypertension Brother CAD (coronary artery disease) Surgical History 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) History of tonsillectomy Social History Smoking Status: Current every day smoker tobacco type: cigarettes alcohol intake: former ROS Constitutional Constitutional: Reports fatigue Eyes Eyes: Denies blurry vision or change in vision ENT HEENT: Denies headache(s) or loss taste/smell Cardiovascular Cardiovascular: Reports dyspnea and irregular heart rhythm; Denies chest pain Respiratory/Chest Respiratory/Chest: Reports cough and dyspnea Gastrointestinal Gastrointestinal: Denies abdominal pain, diarrhea, nausea or vomiting Genitourinary Genitourinary: Denies difficulty urinating Musculoskeletal Musculoskeletal: Denies arthralgias, back pain or joint pain Integumentary Integumentary: Denies lesions, rash or skin ulcer Neurologic Neurologic: Reports confusion Psychiatric Psychiatric: Denies anxiety or depression Endocrine Endocrinology: Reports fatigue Hematologic/Lymphatic Hematologic/Lymphatic: Denies easy bleeding or easy bruising Physical Exam Const alert and no apparent distress General Appearance: cooperative Orientation / Consciousness: oriented to person, oriented to place and confused HEENT normocephalic and head/scalp atraumatic Eyes PERRL and EOMs intact bilaterally Neck supple General: trachea midline Chest inspection of chest normal Resp Auscultation: diminished lung sounds; Negative for rales, rhonchi or wheezes Cardio S1 normal heart sound and S2 normal heart sound Rate: bradycardia Rhythm: abnormal rhythm GI normal to inspection, nondistended, normoactive bowel sounds Extremity no clubbing, cyanosis or edema Skin no rashes or lesions noted Neuro CN's II-XII intact bilaterally and no focal motor deficits Psych cooperative Lab / Micro Data Result Diagrams: 07/17/21 04:25 07/17/21 04:25 Labs: Laboratory Results - last 24 hr 07/16/21 09:44: Urine Color Yellow, Urine Clarity Clear, Urine pH 5.0, Ur Specific [place] 1.020, Urine Protein 100 H, Urine Glucose (UA) 50 H, Urine Ketones 150 A*, Urine Occult Blood 150 H, Urine Nitrite Negative, Urine Bilirubin Negative, Urine Urobilinogen Normal, Ur Leukocyte Esterase Negative, Urine RBC 5-10 SEEN, Urine WBC 0 SEEN, Ur Squamous Epith Cells 0-5 SEEN, Urine Bacteria RARE, Urine Mucus 0 SEEN 07/16/21 10:12: WBC 3.7 L, RBC 3.50 L, Hgb 11.7 L, Hct 35.8 L, MCV 102.3 H, MCH 33.4 H, MCHC 32.7, RDW Std Deviation 46.7 H, RDW Coeff of Jakub 12.5, Plt Count 102 L, MPV 11.3, Immature Gran % (Auto) 0.300, Neut % (Auto) 80.2 H, Lymph % (Auto) 9.6 L, [place] % (Auto) 9.9, Eos % (Auto) 0.0, Baso % (Auto) 0.0, Absolute Neuts (auto) 2.9, Absolute Lymphs (auto) 0.35 L, Nucleated RBC % 0, Diff Path Review February, Platelet Estimate SLT DEC, Hypochromasia RARE, Macrocytosis 1+ 07/16/21 10:12: Sodium 140, Potassium 3.8, Chloride 106, Carbon Dioxide 28.0, Anion Gap 6, BUN 16, Creatinine 0.84, Estim Creat Clear Calc 67.66, Est GFR (MDRD) Af Amer 114, Est GFR (MDRD) Non-Af 94, BUN/Creatinine Ratio 19.2, Glucose 155 H, Calcium 8.1 L, Total Bilirubin 0.30, Direct Bilirubin 0.19, AST 57 H, ALT 23, Alkaline Phosphatase 58, Troponin I High Sens 18, Total Protein 6.7, Albumin 3.0 L, Globulin 3.7 07/16/21 10:12: D-Dimer Quant (PE/DVT) 1.11 H* 07/16/21 10:12: Lactic Acid 2.3 H* 07/16/21 14:30: Lactic Acid Cancelled 07/16/21 15:15: Lactic Acid 2.8 H* 07/16/21 15:15: Alkaline Phosphatase 44 L 07/16/21 17:45: Troponin I High Sens 673 H* 07/16/21 19:45: Troponin I High Sens 607 H* 07/16/21 19:45: Lactic Acid 4.1 H* 07/16/21 23:49: Troponin I High Sens 498 H* 07/17/21 04:25: WBC 5.9, RBC 3.25 L, Hgb 10.9 L, Hct 34.2 L, MCV 105.2 H, MCH 33.5 H, MCHC 31.9 L, RDW Std Deviation 48.5 H, RDW Coeff of Jakub 12.4, Plt Count 102 L, MPV 11.4, Immature Gran % (Auto) 0.500, Neut % (Auto) 80.3 H, Lymph % (Auto) 9.5 L, [place] % (Auto) 9.5, Eos % (Auto) 0.0, Baso % (Auto) 0.2, Absolute Neuts (auto) 4.7, Absolute Lymphs (auto) 0.56 L, Nucleated RBC % 0 07/17/21 04:25: Sodium 140, Potassium 3.4 L, Chloride 107, Carbon Dioxide 27.0, Anion Gap 6, BUN 16, Creatinine 0.73, Estim Creat Clear Calc 51.25, Est GFR (MDRD) Af Amer 132, Est GFR (MDRD) Non-Af 109, BUN/Creatinine Ratio 21.8 H, Glucose 183 H, Calcium 7.8 L, Total Bilirubin 0.30, AST 73 H, ALT 21, Alkaline Phosphatase 57, Total Protein 5.7 L, Albumin 2.3 L, Globulin 3.4, Albumin/Globulin Ratio 0.7 L 07/17/21 04:25: Lactic Acid 1.7 Micro: Microbiology 07/16/21 09:55 Nasal Secretion SARS-CoV-2 Antigen (Rapid) - Final SARS-CoV-2 (COVID 19) ABG Data ABG results: ABG 07/16/21 22:28 Specimen Type ART Sample Site Art Line pH 7.45 Bicarbonate Actual 21.2 L Total CO2 22 Base Excess -3 L O2 Saturation 86 L ABG pCO2 30.5 L ABG pO2 48 L Zak Test Positive O2 Delivery Device Cannula Liter Flow 5.0 Radiology Impression Chest X-Ray 07/16/21 09:20 IMPRESSION: Patchy bilateral pneumonia. Electronically Signed: Troy Stark MD at 10:16 EDT Tel , Service support , Chest CTA 07/16/21 10:56 IMPRESSION: 1. No CT evidence of pulmonary embolism. 2. Bilateral subsegmental atelectasis or pneumonitis with left lower lobe pneumonia. Electronically Signed: Troy Stark MD at 12:48 EDT Tel , Service support , Brain CT 07/16/21 17:22 IMPRESSION: No acute intracranial finding. MRI may be obtained if clinically indicated. Electronically Signed: Hugh White MD at 18:37 EDT Tel , Service support , Chest X-Ray 07/16/21 21:48 IMPRESSION: No appreciable change compared to prior exam with multifocal, reticular opacities and associated airspace disease likely representing infectious etiology with suspected fibrosis. Unchanged asymmetric elevation left hemidiaphragm. Electronically Signed: Jesús Jones DO at 23:53 EDT Tel , Service support , Charges/Coding Visit Charges Inpatient E&M: 54832 Init Hosp L3
[2021-07-17] MEDS: dexAMETHasone 4 MG Tablet 6 MG PO (11:10)
[2021-07-17] MEDS: Enoxaparin 60 MG/0.6 ML Syringe SC ×2 (11:10→21:55)
[2021-07-17] MEDS: Aspirin E.C. 81 MG Tablet PO (11:10)
[2021-07-17] MEDS: CHLORHEXIDINE GLUC 2% CLOTH 1 EACH TOWELETTE TOPICAL (11:29)
[2021-07-17 12:58] LABS: Pathologist Review Reviewed
[2021-07-17] MEDS: Potassium Chloride 10mEq/100mL 10 MEQ/100 ML IV.SOLN. 100 MEQ IV BOLUS ×4 (13:12→16:51)
--- NOTE | 2021-07-17 14:03 | PCM.PN.HOSP ---
Subjective Subjective Agitated overnight and placed on Precedex drip. Had increased oxygen demands of 12 L but since weaned down. Objective Data Objective Data Vital Signs: Vital Signs Temp Pulse Resp BP Pulse Ox 35.7 C L 75 23 H 94/59 L 93 07/17/21 12:00 07/17/21 13:00 07/17/21 13:00 07/17/21 13:00 07/17/21 13:00 Oxygen Flow Rate (L/min) 6 Oxygen Delivery Method Nasal Cannula Weight: 61.5 kg Body Mass Index (BMI) 20.4 Intake & Output: Intake and Output for Last 24 Hours 07/15/21 07/16/21 07/17/21 23:59 23:59 23:59 Intake Total 1690 / 1690 561.37 / 561.37 Output Total 1275 / 1275 600 / 600 Balance 415 / 415 -38.63 / -38.63 Medical Nutrition Assessment Dietitian: Malnutrition Criteria Met Start: 07/17/21 10:46 Freq: Status: Active Protocol: Document 07/17/21 10:46 GAEL (Rec: 07/17/21 10:46 [facility] [id number]) Nutrition Malnutrition Evidence of Malnutrition Exists Yes Evidenced By Suboptimal Energy Intake ( Severe),Weight Loss (Severe) Clinical Problem Altered Nutrient-Related Laboratory Values Etiology related to steroid administration Signs/Symptoms as evidenced by gluc 183 Status Active Problem Acute Disease or Injury Related Malnutrition Etiology related to COVID/ resp failure and pt inability to consume adequate nutrition to meet pt estimated nutritional needs. Signs/Symptoms as evidenced by poor po intake for unknown time frame and 9. 8% wt loss in past 5 months. Pt BMI 20.1. Status Active Problem Recommendation Dietitian Recommendations/Changes Will liberalize diet to regular w/ ensure enlive w/ meals for increased nutrition if consumed d/t signs and symptoms of malnutrition. Lab / Micro Data Result Diagrams: 07/17/21 04:25 07/17/21 04:25 Labs: Laboratory Results - last 24 hr 07/16/21 10:12: Diff Path Review Reviewed 07/16/21 14:30: Lactic Acid Cancelled 07/16/21 15:15: Lactic Acid 2.8 H* 07/16/21 15:15: Alkaline Phosphatase 44 L 07/16/21 17:45: Troponin I High Sens 673 H* 07/16/21 19:45: Troponin I High Sens 607 H* 07/16/21 19:45: Lactic Acid 4.1 H* 07/16/21 23:49: Troponin I High Sens 498 H* 07/17/21 04:25: WBC 5.9, RBC 3.25 L, Hgb 10.9 L, Hct 34.2 L, MCV 105.2 H, MCH 33.5 H, MCHC 31.9 L, RDW Std Deviation 48.5 H, RDW Coeff of Jakub 12.4, Plt Count 102 L, MPV 11.4, Immature Gran % (Auto) 0.500, Neut % (Auto) 80.3 H, Lymph % (Auto) 9.5 L, [place] % (Auto) 9.5, Eos % (Auto) 0.0, Baso % (Auto) 0.2, Absolute Neuts (auto) 4.7, Absolute Lymphs (auto) 0.56 L, Nucleated RBC % 0 07/17/21 04:25: Sodium 140, Potassium 3.4 L, Chloride 107, Carbon Dioxide 27.0, Anion Gap 6, BUN 16, Creatinine 0.73, Estim Creat Clear Calc 51.25, Est GFR (MDRD) Af Amer 132, Est GFR (MDRD) Non-Af 109, BUN/Creatinine Ratio 21.8 H, Glucose 183 H, Calcium 7.8 L, Total Bilirubin 0.30, AST 73 H, ALT 21, Alkaline Phosphatase 57, Total Protein 5.7 L, Albumin 2.3 L, Globulin 3.4, Albumin/Globulin Ratio 0.7 L 07/17/21 04:25: Lactic Acid 1.7 Micro: Microbiology 07/16/21 09:55 Nasal Secretion SARS-CoV-2 Antigen (Rapid) - Final SARS-CoV-2 (COVID 19) ABG Data ABG results: ABG 07/16/21 22:28 Specimen Type ART Sample Site Art Line pH 7.45 Bicarbonate Actual 21.2 L Total CO2 22 Base Excess -3 L O2 Saturation 86 L ABG pCO2 30.5 L ABG pO2 48 L Azk Test Positive O2 Delivery Device Cannula Liter Flow 5.0 Radiography Diagnostic Testing: Radiology Impression Brain CT 07/16/21 17:22 IMPRESSION: No acute intracranial finding. MRI may be obtained if clinically indicated. Electronically Signed: Hugh White MD at 18:37 EDT Tel , Service support , Chest X-Ray 07/16/21 21:48 IMPRESSION: No appreciable change compared to prior exam with multifocal, reticular opacities and associated airspace disease likely representing infectious etiology with suspected fibrosis. Unchanged asymmetric elevation left hemidiaphragm. Electronically Signed: Jesús Jones, DO at 23:53 EDT Tel , Service support , Physical Exam Const alert Constitutional Narrative: Alert to self and place. Does not know the date. More calm today. Resp normal respiratory effort, no retractions, no use of accessory muscles and clear to auscultation bilaterally Cardio regular rate, regular rhythm, S1 normal heart sound and S2 normal heart sound GI normal to inspection, nondistended, normoactive bowel sounds, soft to palpation, non-tender and non-distended Extremity normal to inspection Skin no rashes or lesions noted and no wounds Neuro Sensorium / Orientation: awake and alert Assessment & Plan Assessment/Plan (1) COVID-19: (2) Atrial fibrillation with rapid ventricular response: (3) Hypotension: QUALIFIERS: Hypotension type: unspecified hypotension type Qualified Code(s): I95.9 - Hypotension, unspecified (4) Metabolic encephalopathy: PLAN: 1. Acute COVID-19 pneumonia Date of onset is July 07 Scan reviewed and showed diffuse groundglass patchy infiltrates throughout. Patient is unvaccinated Currently stable on 6 L though the patient is at risk for further decompensation Continue with dexamethasone and remdesivir 2. Acute hypoxic respiratory failure Secondary to above Stable on 6liters Furosemide x1 today 3. Atrial fibrillation with RVR new onset Converted 07/16 Likely brought on by the Covid and the respiratory failure Received IV dilt in ED. CHADS VASC 4, start therapeutic enoxaparin check echo 4. Hypotension stable currently 5. metabolic encephalopathy per dtr: normally alert head CT shows atrophy overall better. Concerned pt may have underlying dementia. He would benefit from Geriatric evaluation. 6. CAD hold metoprolol for now given hypotension 7. VTE prophylaxis: not indicated while anticoagulated 8. Code status: per dtr--full code. Could consider TF to PCU, if BP remains stable. Charges/Coding Visit Charges Inpatient E&M: 18114 Subs Hosp L3
--- NOTE | 2021-07-17 15:33 | CM.UR ---
RN CM assessment deferred at this time as patient is confused. CM will attempt again at later time when patient is able to participate. CM will continue to follow this patient and plan for a safe discharge.
[2021-07-17] MEDS: QUEtiapine 25 MG Tablet PO (16:53)
[2021-07-17] MEDS: Haloperidol Lactate 5 MG/ML Vial 2 MG IV ×2 (17:21→21:54)
[2021-07-17] MEDS: 0.9% Saline Lock 10 ML Syringe IV (20:18)
[2021-07-17] MEDS: LORazepam 2 MG/ML Syringe 1 MG IV (20:18)
[2021-07-18] VITALS (26 sets, daily range): BP systolic 92–156; BP diastolic 45–74; PULSE 52–148; RESP 20–38; TEMP 36.4–37.4; O2SAT 85–97
[2021-07-18] MEDS: LORazepam 2 MG/ML Syringe 1 MG IV ×2 (00:18→04:20)
[2021-07-18] MEDS: 0.9% Saline Lock 10 ML Syringe IV ×2 (02:27→04:21)
[2021-07-18] MEDS: Haloperidol Lactate 5 MG/ML Vial 2 MG IV (02:27)
--- NOTE | 2021-07-18 07:18 | PN.CC_ITS ---
Assessment & Plan Assessment/Plan (1) COVID-19: (2) Hypoxia: PLAN: RECOMMENDATIONS: 1. Wean supplemental oxygen to maintain saturations at or above 90%. 2. Continue remdesivir to complete 5-day treatment course. Continue to monitor liver and renal function. 3. Continue Lovenox as ordered. 4. Continue Decadron to complete 10-day treatment course. 5. Intermittent use of diuretic therapy to maintain euvolemic state. 6. Encourage incentive spirometer use and mobilize patient as tolerated. IMPRESSIONS: 1. Acute hypoxemic respiratory failure secondary to COVID-19 pneumonia The patient presented to the hospital with approximately 10 days of symptoms having tested positive for coronavirus approximately 1 week ago. He will be co ntinued on supplemental oxygen to maintain saturations at or above 90%. Remdesivir will be continued to complete a 5-day treatment course. We will continue to monitor liver and renal function accordingly. Decadron will be continued to complete 10 days of therapy. Lovenox will be continued as ordered. Encourage incentive spirometer use and mobilize patient as tolerated. Intermittent use of diuretic therapy can be utilized to maintain euvolemic state. 2. Atrial fibrillation with RVR/sinus bradycardia/QT prolongation The patient was initially noted to be in atrial fibrillation with RVR while in the emergency department, which responded to Cardizem. 3. Encephalopathy Likely metabolic in etiology and related to #1. ICU delirium is also another consideration. Continue supportive measures. CT head was unremarkable. 4. History of coronary artery disease status post CABG/carotid disease/history of tobacco dependency Complicates care, management, recovery and prognosis. Continue home medications as indicated. This note was generated with [employer] dictation software. It may contain incorrect words, spelling, and punctuation that were not noted in checking the note before signing. Subjective Subjective The patient was seen and examined at the bedside this morning. Events from the last 24 hours have been reviewed. The patient is currently afebrile, hemodynamically stable and maintaining appropriate oxygen saturations on 15 L/min high flow nasal cannula. The patient did become agitated and restless overnight. He is currently documented to be overall net even for the hospitalization. The patient remains on remdesivir, Decadron and Lovenox. Objective Data Objective Data The patient's most recent lab work, culture data and imaging studies have all been personally reviewed. Rapid coronavirus antigen testing was positive on July 16. Blood cultures have demonstrated no growth to date. Vital Signs: Vital Signs Temp Pulse Resp BP Pulse Ox 98.0 F 100 33 H 97/67 90 07/18/21 04:00 07/18/21 07:00 07/18/21 07:00 07/18/21 07:00 07/18/21 07:00 Oxygen Flow Rate (L/min) 15 Oxygen Delivery Method Nasal Cannula Weight: 62.7 kg Body Mass Index (BMI) 20.4 Intake & Output: Intake and Output for Last 24 Hours 07/16/21 07/17/21 07/18/21 23:59 23:59 23:59 Intake Total 1690 / 1690 1201.37 / 1201.37 Output Total 1275 / 1275 700 / 1150 950 / 950 Balance 415 / 415 501.37 / 51.37 -950 / -950 Medical Nutrition Assessment Dietitian: Malnutrition Criteria Met Start: 07/17/21 10:46 Freq: Status: Active Protocol: Document 07/17/21 10:46 GAEL (Rec: 07/17/21 10:46 GAEL [id number]) Nutrition Malnutrition Evidence of Malnutrition Exists Yes Evidenced By Suboptimal Energy Intake ( Severe),Weight Loss (Severe) Clinical Problem Altered Nutrient-Related Laboratory Values Etiology related to steroid administration Signs/Symptoms as evidenced by gluc 183 Status Active Problem Acute Disease or Injury Related Malnutrition Etiology related to COVID/ resp failure and pt inability to consume adequate nutrition to meet pt estimated nutritional needs. Signs/Symptoms as evidenced by poor po intake for unknown time frame and 9. 8% wt loss in past 5 months. Pt BMI 20.1. Status Active Problem Recommendation Dietitian Recommendations/Changes Will liberalize diet to regular w/ ensure enlive w/ meals for increased nutrition if consumed d/t signs and symptoms of malnutrition. Lab / Micro Data Attestation: I reviewed the patient's lab results. Result Diagrams: 07/18/21 04:30 07/18/21 04:30 Labs: Laboratory Results - last 24 hr 07/16/21 10:12: Diff Path Review Reviewed Micro: Microbiology 07/16/21 10:12 Blood Culture (Wb) - Right Forearm Blood Culture - Preliminary No growth in 48 hours. 07/16/21 10:12 Blood Culture (Wb) - Anticubital Right Blood Culture - Preliminary No growth in 48 hours. 07/16/21 09:55 Nasal Secretion SARS-CoV-2 Antigen (Rapid) - Final SARS-CoV-2 (COVID 19) Physical Exam Const alert and no apparent distress Orientation / Consciousness: confused and disoriented HEENT normocephalic and head/scalp atraumatic Eyes PERRL and EOMs intact bilaterally Neck supple General: trachea midline Chest inspection of chest normal Resp Effort and Inspection: tachypneic Auscultation: diminished lung sounds; Negative for rales, rhonchi or wheezes Cardio regular rate and regular rhythm GI normal to inspection, nondistended, normoactive bowel sounds Extremity no clubbing, cyanosis or edema Skin no rashes or lesions noted Neuro CN's II-XII intact bilaterally and no focal motor deficits Psych Psych Narrative: Intermittently agitated and restless. Charges/Coding Visit Charges Inpatient E&M: 74840 Subs Hosp L2
[2021-07-18 07:30] LABS: Absolute Neutrophil Count 8.7 X10^3/uL (2.0-7.7); Basophil# 0.01 X10^3/uL; Basophil% 0.1 % (0-1); Hematocrit 33.5 % (40-54); Hemoglobin 10.8 g/dL (13.0-16.5); Lymphocyte % 5.9 % (19-41); Mean Corp Hgb Conc 32.2 g/dL (32-36); Mean Corpuscular Hgb 33.2 pg (27.0-32.0); Mean Corpuscular Volume 103.1 fL (80-94); Mean Platelet Vol. 12.1 fl (6.2-12.0); Monocyte# 0.85 X10^3/uL; Monocyte% 8.3 % (0-10); NRBC Flagged by Analyzer 0 % (0-5); Neutrophil # 8.71 X10^3/uL (2.7-7.7); Neutrophil % 85.2 % (47-70); POSITIVE DIFFERENTIAL YES; Platelet Count 124 K/mm3 (150-450); RBC Distribution Width CV 12.5 % (11.6-14.6); RBC Distribution Width SD 47.2 fl (35.1-43.9); Red Blood Count 3.25 M/mm3 (4.6-6.2); White Blood Count 10.2 K/mm3 (4.4-11.0)
[2021-07-18 07:34] LABS: Differential Indicated SCAN CRITERIA MET
[2021-07-18 07:44] LABS: ALB/GLOB Ratio 0.7 RATIO (0.9-2.4); AST(SGOT) 98 U/L (15-37); Alanine Aminotransfer ALT/SGPT 30 U/L (16-61); Albumin, Serum 2.3 g/dL (3.2-5.0); Alkaline Phosphatase 64 U/L (45-117); Anion Gap 5 (5-15); BUN 25 mg/dL (7-18); BUN/Creat Ratio 30.8 RATIO (10-20); Calcium,Total 8.3 mg/dL (8.5-10.1); Chloride 110 mmol/L (98-107); Creatinine, Serum 0.81 mg/dL (0.70-1.30); EST Glomerular Filtration Rate 97 mL/min (>60); Est Glom Filt Rate - Afr Amer 118 mL/min (>60); Estimated Creatinine Clearance 64.51 ml/min; Globulin 3.5 g/dL (2.2-4.2); Glucose 165 mg/dL (74-106); Protein, Total 5.8 g/dL (6.4-8.2); Sodium Level 143 mmol/L (136-145)
[2021-07-18] MEDS: Ziprasidone IM 20 MG/ML VIAL 10 MG IM (09:45)
--- NOTE | 2021-07-18 10:35 | CASEMGMT ---
RN CM called daughter Vernell for initial transition planning/care coordination assessment as patient is currently confused. RN CM introduced self and role at [facility]. Daughter willing to participate in assessment and is able to answer all questions appropriately. Care providers, pharmacy, and demographics verified. Daughter states that she is currently caring for patient's and is not sure she will be able to care for patient as well. Daughter states that if need agreeable to SNF at discharge. Daughter states she has no further needs or concerns at this time. SW updated regarding potential placement. CM to follow for discharge planning needs that may arise. PCP: Arnav Zamora Specialists: Eddie, steel floor pan placing supervisor Preferred Pharmacy: [facility] Pres[facility] Benefit: yes Living Will/HPOA: none LNOK: , daughter Living Arrangements: Patient lives with and daughter in a single story home, with 2 steps and railing to enter the home. Per daughter, patient is independent at home. Transportation: self/daughter DME/HHC: Patient has shower chair and grab bars at home. No previous HHC or SNF. Disposition Plan: HHC vs SNF, will monitor course of treatment and progress with therapy for discharge disposition. Angela SWANSON, RN, CM
[2021-07-18] MEDS: Enoxaparin 60 MG/0.6 ML Syringe SC ×2 (12:28→23:29)
[2021-07-18] MEDS: Furosemide 40 MG/4 ML Vial IV (12:28)
--- NOTE | 2021-07-18 13:53 | RAD_ITS ---
STUDY: X-RAY CHEST REASON FOR EXAM: Male, 80 years old. Picc placement TECHNIQUE: Single AP portable view of the chest. COMPARISON: Comparison is made with prior study of 07/16/2021. FINDINGS: A right-sided PICC line catheter has been placed. The tip is at the junction of the superior vena cava and right atrium. EKG electrodes are seen. Stable elevation of the left hemidiaphragm. Progressive infiltrate in the right upper lobe as well as in the left lower lobe. There is no demonstrated pleural abnormality. Sternal cerclage wires and vascular clips are present from a prior sternotomy and coronary artery bypass graft procedure (CABG). Normal mediastinum and kristi. Normal visualized pulmonary arteries. There is atherosclerotic calcification of the aortic arch with tortuosity. There are diffuse degenerative changes of the visualized thoracic spine. Normal visualized ribs, clavicles, and shoulders. There is no demonstrated abnormality of the visualized soft tissue structures of the upper abdomen. RAD/CXR for Line Placement IMPRESSION: The tip of the right PICC line catheter is at the junction of the superior vena cava and right atrium. Progressive infiltrate in the right upper lobe as well as in the left lung base. Electronically Signed: Magan Méndez MD at 14:56 EDT , Service support ,
--- NOTE | 2021-07-18 14:34 | NURSING ---
Patient with strong pulse, extremely agitated, unable to get blood pressures, Dr. Ba aware.
--- NOTE | 2021-07-18 14:48 | PN.HOSP_ITS ---
Subjective Subjective Agitated overnight and was resumed on dexmedetomidine gtt, which has calmeed him down. Did received a 1x dose of ziprasidone last night w/o affect. Objective Data Objective Data Vital Signs: Vital Signs Temp Pulse Resp BP Pulse Ox 36.5 C L 140 H 30 H 92/55 L 89 07/18/21 12:00 07/18/21 14:00 07/18/21 14:00 07/18/21 08:00 07/18/21 14:00 Oxygen Flow Rate (L/min) 15 Oxygen Delivery Method Nasal Cannula Weight: 62.7 kg Body Mass Index (BMI) 20.4 Intake & Output: Intake and Output for Last 24 Hours 07/16/21 07/17/21 07/18/21 23:59 23:59 23:59 Intake Total 1690 / 1690 1201.37 / 1201.37 31.72 / 31.72 Output Total 1275 / 1275 700 / 1150 950 / 950 Balance 415 / 415 501.37 / 51.37 -918.28 / -918.28 Medical Nutrition Assessment Dietitian: Malnutrition Criteria Met Start: 07/17/21 10:46 Freq: Status: Active Protocol: Document 07/17/21 10:46 GAEL (Rec: 07/17/21 10:46 [facility] [id number]) Nutrition Malnutrition Evidence of Malnutrition Exists Yes Evidenced By Suboptimal Energy Intake ( Severe),Weight Loss (Severe) Clinical Problem Altered Nutrient-Related Laboratory Values Etiology related to steroid administration Signs/Symptoms as evidenced by gluc 183 Status Active Problem Acute Disease or Injury Related Malnutrition Etiology related to COVID/ resp failure and pt inability to consume adequate nutrition to meet pt estimated nutritional needs. Signs/Symptoms as evidenced by poor po intake for unknown time frame and 9. 8% wt loss in past 5 months. Pt BMI 20.1. Status Active Problem Recommendation Dietitian Recommendations/Changes Will liberalize diet to regular w/ ensure enlive w/ meals for increased nutrition if consumed d/t signs and symptoms of malnutrition. Lab / Micro Data Result Diagrams: 07/18/21 04:30 07/18/21 04:30 Labs: Laboratory Results - last 24 hr 07/18/21 04:30: WBC 10.2, RBC 3.25 L, Hgb 10.8 L, Hct 33.5 L, MCV 103.1 H, MCH 33.2 H, MCHC 32.2, RDW Std Deviation 47.2 H, RDW Coeff of Jakub 12.5, Plt Count 124 L, MPV 12.1 H, Immature Gran % (Auto) 0.500, Neut % (Auto) 85.2 H, Lymph % (Auto) 5.9 L, [place] % (Auto) 8.3, Eos % (Auto) 0.0, Baso % (Auto) 0.1, Absolute Neuts (auto) 8.7 H, Absolute Lymphs (auto) 0.60 L, Nucleated RBC % 0, Differential Comment COMMENT 07/18/21 04:30: Sodium 143, Potassium 4.0, Chloride 110 H, Carbon Dioxide 28.0, Anion Gap 5, BUN 25 H, Creatinine 0.81, Estim Creat Clear Calc 64.51, Est GFR (MDRD) Af Amer 118, Est GFR (MDRD) Non-Af 97, BUN/Creatinine Ratio 30.8 H, Glucose 165 H, Calcium 8.3 L, Total Bilirubin 0.50, AST 98 H, ALT 30, Alkaline Phosphatase 64, Total Protein 5.8 L, Albumin 2.3 L, Globulin 3.5, Albumin/Globulin Ratio 0.7 L Micro: Microbiology 07/16/21 10:12 Blood Culture (Wb) - Right Forearm Blood Culture - Preliminary No growth in 48 hours. 07/16/21 10:12 Blood Culture (Wb) - Anticubital Right Blood Culture - Preliminary No growth in 48 hours. 07/16/21 09:55 Nasal Secretion SARS-CoV-2 Antigen (Rapid) - Final SARS-CoV-2 (COVID 19) Radiography Diagnostic Testing: Radiology Impression Chest X-Ray 07/16/21 09:20 IMPRESSION: Patchy bilateral pneumonia. Electronically Signed: Troy Stark MD at 10:16 EDT Tel , Service support , Chest CTA 07/16/21 10:56 IMPRESSION: 1. No CT evidence of pulmonary embolism. 2. Bilateral subsegmental atelectasis or pneumonitis with left lower lobe pneumonia. Electronically Signed: Troy Stark MD at 12:48 EDT Tel , Service support , Brain CT 07/16/21 17:22 IMPRESSION: No acute intracranial finding. MRI may be obtained if clinically indicated. Electronically Signed: Hugh White MD at 18:37 EDT Tel , Service support , Echocardiogram 07/16/21 17:22 Interpretation Summary Normal LV size. Left ventricular systolic function is normal. The estimated ejection fraction is 60 %. The study was technically limited. ____ Ordering Physician: Arnav Galvez Referring Physician: Arnav Zamora Performed By: Elaine Rice, ESTELACS, RVT Chest X-Ray 07/16/21 21:48 IMPRESSION: No appreciable change compared to prior exam with multifocal, reticular opacities and associated airspace disease likely representing infectious etiology with suspected fibrosis. Unchanged asymmetric elevation left hemidiaphragm. Electronically Signed: Jesús Jones DO at 23:53 EDT Tel , Service support , Physical Exam Const Constitutional Narrative: sleeping, did not awake HEENT Head and Scalp: normocephalic Resp normal respiratory effort, no retractions and no use of accessory muscles Cardio regular rate, regular rhythm, S1 normal heart sound and S2 normal heart sound GI normal to inspection, nondistended, normoactive bowel sounds, soft to palpation and non-tender Assessment & Plan Assessment/Plan (1) COVID-19: (2) Atrial fibrillation with rapid ventricular response: (3) Hypotension: QUALIFIERS: Hypotension type: unspecified hypotension type Qualified Code(s): I95.9 - Hypotension, unspecified (4) Metabolic encephalopathy: PLAN: 1. Acute COVID-19 pneumonia Date of onset is July 07 Scan reviewed and showed diffuse groundglass patchy infiltrates throughout. Patient is unvaccinated Continue with dexamethasone and remdesivir 2. Acute hypoxic respiratory failure overall worse. complicated readings when he gets agitated Secondary to above Hold additional Furosemide 3. Atrial fibrillation with RVR new onset Converted 07/16 Likely brought on by the Covid and the respiratory failure Received IV dilt in ED. CHADS VASC 4, start therapeutic enoxaparin echo shows normal LV size and EF 60% 4. Hypotension stable currently 5. metabolic encephalopathy per dtr when I spoke with her on admission: normally alert head CT shows atrophy pt still very agitated at times currently dexmedetomidine gtt this provider suspects underlying dementia, but certainly exacerbated by underlying infection +/- ICU psychosis (but was behaving this way when he first arrived in ICU) + steroids (was was agitated prior to steroids) 6. CAD hold metoprolol for now given hypotension 7. VTE prophylaxis: not indicated while anticoagulated 8. Code status: per dtr--full code. Continue ICU level of care. Charges/Coding Visit Charges Inpatient E&M: 38418 Subs Hosp L2
[2021-07-18] MEDS: Potassium Chloride 10mEq/100mL 10 MEQ/100 ML IV.SOLN. 100 MEQ IV BOLUS ×4 (15:18→19:46)
[2021-07-18] MEDS: Dexmedetomidine 1,000 mcg in 0.9% NS 240 mL 23.5 MCG CONT INF (19:23)
[2021-07-19] VITALS (31 sets, daily range): BP systolic 119–164; BP diastolic 51–150; PULSE 43–100; RESP 18–36; TEMP 35.1–36.1; O2SAT 89–96
[2021-07-19] MEDS: CHLORHEXIDINE GLUC 2% CLOTH 1 EACH TOWELETTE TOPICAL (03:30)
[2021-07-19 04:31] LABS: Absolute Lymphocyte Count 0.33 X10^3/uL (0.83-4.51); Absolute Neutrophil Count 6.2 X10^3/uL (2.0-7.7); Basophil# 0.01 X10^3/uL; Basophil% 0.1 % (0-1); Hematocrit 34.8 % (40-54); Hemoglobin 11.3 g/dL (13.0-16.5); Lymphocyte # 0.33 X10^3/ul (0.83-4.51); Lymphocyte % 4.8 % (19-41); Mean Corp Hgb Conc 32.5 g/dL (32-36); Mean Corpuscular Volume 101.8 fL (80-94); Mean Platelet Vol. 11.2 fl (6.2-12.0); Monocyte# 0.34 X10^3/uL; NRBC Flagged by Analyzer 0 % (0-5); Neutrophil # 6.15 X10^3/uL (2.7-7.7); Neutrophil % 89.8 % (47-70); POSITIVE DIFFERENTIAL YES; Platelet Count 126 K/mm3 (150-450); RBC Distribution Width CV 12.2 % (11.6-14.6); Red Blood Count 3.42 M/mm3 (4.6-6.2); White Blood Count 6.9 K/mm3 (4.4-11.0)
[2021-07-19 04:33] LABS: Differential Indicated SCAN CRITERIA MET
[2021-07-19 04:42] LABS: ALB/GLOB Ratio 0.6 RATIO (0.9-2.4); AST(SGOT) 85 U/L (15-37); Alanine Aminotransfer ALT/SGPT 32 U/L (16-61); Albumin, Serum 2.1 g/dL (3.2-5.0); Alkaline Phosphatase 69 U/L (45-117); Anion Gap 2 (5-15); BUN 30 mg/dL (7-18); BUN/Creat Ratio 51.8 RATIO (10-20); Chloride 112 mmol/L (98-107); Creatinine, Serum 0.58 mg/dL (0.70-1.30); EST Glomerular Filtration Rate 143 mL/min (>60); Est Glom Filt Rate - Afr Amer 173 mL/min (>60); Estimated Creatinine Clearance 52.25 ml/min; Globulin 3.6 g/dL (2.2-4.2); Glucose 218 mg/dL (74-106); Potassium 3.7 mmol/L (3.5-5.1); Protein, Total 5.7 g/dL (6.4-8.2); Sodium Level 145 mmol/L (136-145)
[2021-07-19] MEDS: Dexmedetomidine 1,000 mcg in 0.9% NS 240 mL 18.8 MCG CONT INF (07:00)
--- NOTE | 2021-07-19 09:56 | PN.CC_ITS ---
Assessment & Plan Assessment/Plan (1) COVID-19: (2) Hypoxia: PLAN: RECOMMENDATIONS: 1. Wean supplemental oxygen to maintain saturations at or above 90%. 2. Continue remdesivir to complete 5-day treatment course. Continue to monitor liver and renal function. 3. Continue Lovenox as ordered. 4. Continue Decadron to complete 10-day treatment course. 5. Intermittent use of diuretic therapy to maintain euvolemic state. 6. Encourage incentive spirometer use and mobilize patient as tolerated. 7. Wean patient completely from Precedex today. IMPRESSIONS: 1. Acute hypoxemic respiratory failure secondary to COVID-19 pneumonia The patient presented to the hospital with approximately 10 days of symptoms having tested positive for coronavirus approximately 1 week ago. He will be continued on supplemental oxygen to maintain saturations at or above 90%. Remdesivir will be continued to complete a 5-day treatment course. We will co ntinue to monitor liver and renal function accordingly. Decadron will be continued to complete 10 days of therapy. Lovenox will be continued as ordered. Encourage incentive spirometer use and mobilize patient as tolerated. Intermittent use of diuretic therapy can be utilized to maintain euvolemic state. 2. Atrial fibrillation with RVR/sinus bradycardia/QT prolongation The patient was initially noted to be in atrial fibrillation with RVR while in the emergency department, which responded to Cardizem. 3. Encephalopathy Likely metabolic in etiology and related to #1. ICU delirium is also another consideration. Continue supportive measures. CT head was unremarkable. 4. History of coronary artery disease status post CABG/carotid disease/history of tobacco dependency Complicates care, management, recovery and prognosis. Continue home medications as indicated. This note was generated with [employer] dictation software. It may contain incorrect words, spelling, and punctuation that were not noted in checking the note before signing. Subjective Subjective The patient was seen and examined at the bedside this morning. Events from the last 24 hours have been reviewed. The patient is currently afebrile, hemodynamically stable and maintaining appropriate oxygen saturations on 5 L/min via nasal cannula. The patient's family did confirm yesterday that the patient has a history of alcohol dependency. He is currently being maintained on a Precedex infusion, which is actively being weaned. He is currently documented to be overall net -600 mL for the hospital admission. He remains on remdesivir, Lovenox and Decadron. Objective Data Objective Data The patient's most recent lab work, culture data and imaging studies have all been personally reviewed. Rapid coronavirus antigen testing was positive on July 16. Blood cultures have demonstrated no growth to date. Vital Signs: Vital Signs Temp Pulse Resp BP Pulse Ox 96.1 F L 45 L 19 H 145/58 H 92 07/19/21 08:00 07/19/21 08:00 07/19/21 08:00 07/19/21 08:00 07/19/21 08:00 Oxygen Flow Rate (L/min) 5 Oxygen Delivery Method Nasal Cannula Weight: 58.8 kg Body Mass Index (BMI) 20.4 Intake & Output: Intake and Output for Last 24 Hours 07/17/21 07/18/21 07/19/21 23:59 23:59 23:59 Intake Total 1201.37 / 1201.37 871.55 / 895.05 165.01 / 165.01 Output Total 700 / 1150 2120 / 2120 450 / 450 Balance 501.37 / 51.37 -1248.45 / -1224.95 -284.99 / -284.99 Medical Nutrition Assessment Dietitian: Malnutrition Criteria Met Start: 07/17/21 10:46 Freq: Status: Active Protocol: Document 07/17/21 10:46 GAEL (Rec: 07/17/21 10:46 [email or web address] [id number]) Nutrition Malnutrition Evidence of Malnutrition Exists Yes Evidenced By Suboptimal Energy Intake ( Severe),Weight Loss (Severe) Clinical Problem Altered Nutrient-Related Laboratory Values Etiology related to steroid administration Signs/Symptoms as evidenced by gluc 183 Status Active Problem Acute Disease or Injury Related Malnutrition Etiology related to COVID/ resp failure and pt inability to consume adequate nutrition to meet pt estimated nutritional needs. Signs/Symptoms as evidenced by poor po intake for unknown time frame and 9. 8% wt loss in past 5 months. Pt BMI 20.1. Status Active Problem Recommendation Dietitian Recommendations/Changes Will liberalize diet to regular w/ ensure enlive w/ meals for increased nutrition if consumed d/t signs and symptoms of malnutrition. Lab / Micro Data Attestation: I reviewed the patient's lab results. Result Diagrams: 07/19/21 04:10 07/19/21 04:10 Labs: Laboratory Results - last 24 hr 07/19/21 04:10: WBC 6.9, RBC 3.42 L, Hgb 11.3 L, Hct 34.8 L, MCV 101.8 H, MCH 33.0 H, MCHC 32.5, RDW Std Deviation 46.0 H, RDW Coeff of Jakub 12.2, Plt Count 126 L, MPV 11.2, Immature Gran % (Auto) 0.300, Neut % (Auto) 89.8 H, Lymph % (Auto) 4.8 L, Fergus % (Auto) 5.0, Eos % (Auto) 0.0, Baso % (Auto) 0.1, Absolute Neuts (auto) 6.2, Absolute Lymphs (auto) 0.33 L, Nucleated RBC % 0 07/19/21 04:10: Sodium 145, Potassium 3.7, Chloride 112 H, Carbon Dioxide 31.0, Anion Gap 2 L, BUN 30 H, Creatinine 0.58 L, Estim Creat Clear Calc 52.25, Est GFR (MDRD) Af Amer 173, Est GFR (MDRD) Non-Af 143, BUN/Creatinine Ratio 51.8 H, Glucose 218 H, Calcium 8.0 L, Total Bilirubin 0.50, AST 85 H, ALT 32, Alkaline Phosphatase 69, Total Protein 5.7 L, Albumin 2.1 L, Globulin 3.6, Albumin/Globulin Ratio 0.6 L Micro: Microbiology 07/16/21 10:12 Blood Culture (Wb) - Right Forearm Blood Culture - Preliminary No growth in 48 hours. 07/16/21 10:12 Blood Culture (Wb) - Anticubital Right Blood Culture - Preliminary No growth in 48 hours. 07/16/21 09:55 Nasal Secretion SARS-CoV-2 Antigen (Rapid) - Final SARS-CoV-2 (COVID 19) Radiography Diagnostic Testing: Radiology Impression Chest X-Ray 07/16/21 09:20 IMPRESSION: Patchy bilateral pneumonia. Electronically Signed: Troy Stark MD at 10:16 EDT Tel , Service support , Chest CTA 07/16/21 10:56 IMPRESSION: 1. No CT evidence of pulmonary embolism. 2. Bilateral subsegmental atelectasis or pneumonitis with left lower lobe pneumonia. Electronically Signed: Troy Stark MD at 12:48 EDT Tel , Service support , Brain CT 07/16/21 17:22 IMPRESSION: No acute intracranial finding. MRI may be obtained if clinically indicated. Electronically Signed: Hugh White MD at 18:37 EDT Tel , Service support , Echocardiogram 07/16/21 17:22 Interpretation Summary Normal LV size. Left ventricular systolic function is normal. The estimated ejection fraction is 60 %. The study was technically limited. Ordering Physician: Arnav Galvez Referring Physician: Arnav Zamora Performed By: Elaine Rice, LYNDA, RVT Chest X-Ray 07/16/21 21:48 IMPRESSION: No appreciable change compared to prior exam with multifocal, reticular opacities and associated airspace disease likely representing infectious etiology with suspected fibrosis. Unchanged asymmetric elevation left hemidiaphragm. Electronically Signed: Jesús Jones DO at 23:53 EDT Tel , Service support , Chest X-Ray 07/18/21 13:53 IMPRESSION: The tip of the right PICC line catheter is at the junction of the superior vena cava and right atrium. Progressive infiltrate in the right upper lobe as well as in the left lung base. Electronically Signed: Magan Méndez MD at 14:56 EDT , Service support , Physical Exam Const alert and no apparent distress Orientation / Consciousness: confused and disoriented HEENT normocephalic and head/scalp atraumatic Eyes PERRL and EOMs intact bilaterally Neck supple General: trachea midline Chest inspection of chest normal Resp Auscultation: diminished lung sounds; Negative for rales, rhonchi or wheezes Cardio S1 normal heart sound and S2 normal heart sound Rate: bradycardia GI normal to inspection, nondistended, normoactive bowel sounds Extremity no clubbing, cyanosis or edema Skin no rashes or lesions noted Neuro CN's II-XII intact bilaterally and no focal motor deficits Psych Mood & Affect: flat affect Charges/Coding Visit Charges Inpatient E&M: 15991 Subs Hosp L2
[2021-07-19] MEDS: Enoxaparin 60 MG/0.6 ML Syringe SC ×2 (10:48→23:12)
[2021-07-19] MEDS: dexAMETHasone 10 MG/ML Vial 6 MG IV (10:48)
[2021-07-19] MEDS: 0.9% Saline Lock 10 ML Syringe IV ×2 (10:51→20:33)
--- NOTE | 2021-07-19 11:59 | PN.HOSP_ITS ---
Subjective Subjective Patient was seen and examined. Patient remains on 5 L of oxygen. He is on Precedex drip which is being weaned off. Per nursing, patient had been drinking his NyQuil. Objective Data Objective Data Vital Signs: Vital Signs Temp Pulse Resp BP Pulse Ox 96.1 F L 47 L 20 H 130/62 H 90 07/19/21 08:00 07/19/21 10:00 07/19/21 10:00 07/19/21 10:00 07/19/21 10:00 Oxygen Flow Rate (L/min) 5 Oxygen Delivery Method Nasal Cannula Weight: 58.8 kg Body Mass Index (BMI) 20.4 Intake & Output: Intake and Output for Last 24 Hours 07/17/21 07/18/21 07/19/21 23:59 23:59 23:59 Intake Total 1201.37 / 1201.37 871.55 / 895.05 165.01 / 165.01 Output Total 700 / 1150 2120 / 2120 450 / 450 Balance 501.37 / 51.37 -1248.45 / -1224.95 -284.99 / -284.99 Medical Nutrition Assessment Dietitian: Malnutrition Criteria Met Start: 07/17/21 10:46 Freq: Status: Active Protocol: Document 07/19/21 11:07 (Rec: 07/19/21 11:07 [id number]) Nutrition Malnutrition Evidence of Malnutrition Exists Yes Malnutrition (severe): Social/Behavioral/ Environmental Evidenced By Suboptimal Energy Intake ( Severe),Weight Loss (Severe) Clinical Problem Chronic Disease or Condition Related Malnutrition Etiology severe, chronic malnutrition in context of social/ behavioral circumstances r/t predicted suboptimal protein/ calorie intake d/t substance abuse Signs/Symptoms as evidenced by 6.2kg/9% wt loss x 2 months 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; 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% of estimated 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 requirements 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 Lab / Micro Data Result Diagrams: 07/19/21 04:10 07/19/21 04:10 Labs: Laboratory Results - last 24 hr 07/19/21 04:10: WBC 6.9, RBC 3.42 L, Hgb 11.3 L, Hct 34.8 L, MCV 101.8 H, MCH 33.0 H, MCHC 32.5, RDW Std Deviation 46.0 H, RDW Coeff of Jakub 12.2, Plt Count 126 L, MPV 11.2, Immature Gran % (Auto) 0.300, Neut % (Auto) 89.8 H, Lymph % (Auto) 4.8 L, [place] % (Auto) 5.0, Eos % (Auto) 0.0, Baso % (Auto) 0.1, Absolute Neuts (auto) 6.2, Absolute Lymphs (auto) 0.33 L, Nucleated RBC % 0 07/19/21 04:10: Sodium 145, Potassium 3.7, Chloride 112 H, Carbon Dioxide 31.0, Anion Gap 2 L, BUN 30 H, Creatinine 0.58 L, Estim Creat Clear Calc 52.25, Est GFR (MDRD) Af Amer 173, Est GFR (MDRD) Non-Af 143, BUN/Creatinine Ratio 51.8 H, Glucose 218 H, Calcium 8.0 L, Total Bilirubin 0.50, AST 85 H, ALT 32, Alkaline Phosphatase 69, Total Protein 5.7 L, Albumin 2.1 L, Globulin 3.6, Albumin/Globulin Ratio 0.6 L Micro: Microbiology 07/16/21 10:12 Blood Culture (Wb) - Right Forearm Blood Culture - Preli minary No growth in 48 hours. 07/16/21 10:12 Blood Culture (Wb) - Anticubital Right Blood Culture - Preliminary No growth in 48 hours. 07/16/21 09:55 Nasal Secretion SARS-CoV-2 Antigen (Rapid) - Final SARS-CoV-2 (COVID 19) Radiography Diagnostic Testing: Radiology Impression Chest X-Ray 07/16/21 09:20 IMPRESSION: Patchy bilateral pneumonia. Electronically Signed: Troy Stark MD at 10:16 EDT Tel , Service support , Chest CTA 07/16/21 10:56 IMPRESSION: 1. No CT evidence of pulmonary embolism. 2. Bilateral subsegmental atelectasis or pneumonitis with left lower lobe pneumonia. Electronically Signed: Troy Stark MD at 12:48 EDT Tel , Service support , Brain CT 07/16/21 17:22 IMPRESSION: No acute intracranial finding. MRI may be obtained if clinically indicated. Electronically Signed: Hugh White MD at 18:37 EDT Tel , Service support , Chest X-Ray 07/16/21 21:48 IMPRESSION: No appreciable change compared to prior exam with multifocal, reticular opacities and associated airspace disease likely representing infectious etiology with suspected fibrosis. Unchanged asymmetric elevation left hemidiaphragm. Electronically Signed: Jesús Jones DO at 23:53 EDT Tel , Service support , Chest X-Ray 07/18/21 13:53 IMPRESSION: The tip of the right PICC line catheter is at the junction of the superior vena cava and right atrium. Progressive infiltrate in the right upper lobe as well as in the left lung base. Electronically Signed: Magan Méndez MD at 14:56 EDT , Service support , Physical Exam Narrative Physical exam: General: Alert, Oriented x3, lethargy, No apparent distress, on 5 L of oxygen HEENT: Atraumatic Oral: Dry mucosa Neck: Supple Lungs: Diminished to auscultation Cardiovascular: HS I+II, regular, no murmurs Abdomen: Bowel Sounds Present, Soft, Non Tender Extremities: No edema Assessment & Plan Assessment/Plan (1) COVID-19: (2) Atrial fibrillation with rapid ventricular response: (3) Hypotension: QUALIFIERS: Hypotension type: unspecified hypotension type Qualified Code(s): I95.9 - Hypotension, unspecified (4) Metabolic encephalopathy: PLAN: 1. Acute hypoxic respiratory failure secondary to acute COVID-19 pneumonia Chest x-ray today shows progressive right upper lobe pneumonia as well as left lower lung On nasal cannula oxygen Continue to wean off 2. Acute COVID-19 pneumonia, severe with resp failure Patient is unvaccinated;symptoms started on 07/07 Continue on dexamethasone and remdesivir 3. Acute metabolic encephalopathy likely secondary to acute alcohol withdrawal Daughter reports seen NyQuil bottles empty Currently on Precedex drip, will continue to monitor on CIWA protocol Will add thiamine, folic acid 4. Atrial fibrillation with RVR new onset, secondary to #1 and 2 In normal sinus rhythm, cardioverted on 07/16 [facility] VASC 4, Continue on amiodarone drip, therapeutic Lovenox Echo shows normal LV size and EF 60% 5. Hypotension, resolved Charges/Coding Visit Charges Inpatient E&M: 24738 Subs Hosp L3
[2021-07-19] MEDS: LORazepam 2 MG/ML Syringe 1 MG IV (20:33)
[2021-07-19] MEDS: Haloperidol Lactate 5 MG/ML Vial 2 MG IV (22:39)
[2021-07-20] VITALS (25 sets, daily range): BP systolic 84–163; BP diastolic 56–110; PULSE 41–84; RESP 18–32; TEMP 35.6–36.6; O2SAT 87–96
[2021-07-20] MEDS: Dexmedetomidine 1,000 mcg in 0.9% NS 240 mL 23.5 MCG CONT INF ×3 (00:42→22:14)
[2021-07-20] MEDS: LORazepam 2 MG/ML Syringe 1 MG IV ×2 (02:10→22:11)
[2021-07-20] MEDS: Haloperidol Lactate 5 MG/ML Vial 2 MG IV ×2 (05:04→11:34)
[2021-07-20 07:08] LABS: ALB/GLOB Ratio 0.6 RATIO (0.9-2.4); AST(SGOT) 78 U/L (15-37); Alanine Aminotransfer ALT/SGPT 36 U/L (16-61); Albumin, Serum 2.1 g/dL (3.2-5.0); Alkaline Phosphatase 77 U/L (45-117); Anion Gap 3 (5-15); BUN 29 mg/dL (7-18); BUN/Creat Ratio 50.4 RATIO (10-20); Calcium,Total 8.2 mg/dL (8.5-10.1); Chloride 119 mmol/L (98-107); Creatinine, Serum 0.58 mg/dL (0.70-1.30); EST Glomerular Filtration Rate 145 mL/min (>60); Est Glom Filt Rate - Afr Amer 175 mL/min (>60); Estimated Creatinine Clearance 48.42 ml/min; Globulin 3.4 g/dL (2.2-4.2); Glucose 180 mg/dL (74-106); Potassium 3.1 mmol/L (3.5-5.1); Protein, Total 5.5 g/dL (6.4-8.2); Sodium Level 151 mmol/L (136-145)
--- NOTE | 2021-07-20 10:02 | PCM.PN.HOSP ---
Subjective Subjective Patient was seen and examined. He remains on increased amount of Precedex. He is easily agitated. Currently on 10 L of oxygen; up from 5 L. Objective Data Objective Data Vital Signs: Vital Signs Temp Pulse Resp BP Pulse Ox 97 F L 71 25 H 148/108 H 89 07/20/21 04:00 07/20/21 06:00 07/20/21 06:00 07/20/21 06:00 07/20/21 06:00 Oxygen Flow Rate (L/min) 15 Oxygen Delivery Method Nasal Cannula Weight: 58.1 kg Body Mass Index (BMI) 20.4 Intake & Output: Intake and Output for Last 24 Hours 07/18/21 07/19/21 07/20/21 23:59 23:59 23:59 Intake Total 871.55 / 895.05 625.44 / 648.94 309.19 / 309.19 Output Total 2120 / 2120 745 / 745 350 / 350 Balance -1248.45 / -1224.95 -119.56 / -96.06 -40.81 / -40.81 Medical Nutrition Assessment Dietitian: Malnutrition Criteria Met Start: 07/17/21 10:46 Freq: Status: Active Protocol: Document 07/19/21 11:07 (Rec: 07/19/21 11:07 [id number]) Nutrition Malnutrition Evidence of Malnutrition Exists Yes Malnutrition (severe): Social/Behavioral/ Environmental Evidenced By Suboptimal Energy Intake ( Severe),Weight Loss (Severe) Clinical Problem Chronic Disease or Condition Related Malnutrition Etiology severe, chronic malnutrition in context of social/ behavioral circumstances r/t predicted suboptimal protein/ calorie intake d/t substance abuse Signs/Symptoms as evidenced by 6.2kg/9% wt loss x 2 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; 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 Lab / Micro Data Result Diagrams: 07/19/21 04:10 07/20/21 06:30 Labs: Laboratory Results - last 24 hr 07/20/21 06:30: Sodium 151 H, Potassium 3.1 L, Chloride 119 H, Carbon Dioxide 29.0, Anion Gap 3 L, BUN 29 H, Creatinine 0.58 L, Estim Creat Clear Calc 48.42, Est GFR (MDRD) Af Amer 175, Est GFR (MDRD) Non-Af 145, BUN/Creatinine Ratio 50.4 H, Glucose 180 H, Calcium 8.2 L, Total Bilirubin 0.60, AST 78 H, ALT 36, Alkaline Phosphatase 77, Total Protein 5.5 L, Albumin 2.1 L, Globulin 3.4, Albumin/Globulin Ratio 0.6 L Micro: Microbiology 07/16/21 10:12 Blood Culture (Wb) - Right Forearm Blood Culture - Preliminary No growth in 48 hours. 07/16/21 10:12 Blood Culture (Wb) - Anticubital Right Blood Culture - Preliminary No growth in 48 hours. 07/16/21 09:55 Nasal Secretion SARS-CoV-2 Antigen (Rapid) - Final SARS-CoV-2 (COVID 19) Physical Exam Narrative Physical exam: General: Alert, Oriented x3, lethargy, No apparent distress, on 10 L of oxygen HEENT: Atraumatic Oral: Dry mucosa Neck: Supple Lungs: Diminished to auscultation Cardiovascular: HS I+II, regular, no murmurs Abdomen: Bowel Sounds Present, Soft, Non Tender Extremities: No edema Assessment & Plan Assessment/Plan (1) COVID-19: (2) Atrial fibrillation with rapid ventricular response: (3) Hypotension: QUALIFIERS: Hypotension type: unspecified hypotension type Qualified Code(s): I95.9 - Hypotension, unspecified (4) Metabolic encephalopathy: PLAN: 1. Acute hypoxic respiratory failure secondary to acute COVID-19 pneumonia, worsening Currently on 10 L of oxygen chest x-ray today shows progressive right upper lobe pneumonia as well as left lower lung Continue to wean off 2. Acute COVID-19 pneumonia, severe with resp failure Patient is unvaccinated;symptoms started on 07/07 Continue on dexamethasone and remdesivir 3. Acute metabolic encephalopathy likely secondary to acute alcohol withdrawal -although patient states more than 72 hours post admission. Daughter reports seen NyQuil bottles empty Currently on Precedex drip, will continue to monitor on [place] protocol We will switch to IV thiamine and folic acid 4. Atrial fibrillation with RVR new onset, eesolved Secondary to #1 and 2, in normal sinus rhythm In normal sinus rhythm, cardioverted on 07/16 CHADS VASC 4, Off amiodarone drip, Continue on therapeutic Lovenox Echo shows normal LV size and EF 60% 5. Hypotension, resolved Charges/Coding Visit Charges Inpatient E&M: 77217 Subs Hosp L3
--- NOTE | 2021-07-20 10:57 | PN.CC_ITS ---
Assessment & Plan Assessment/Plan (1) COVID-19: (2) Hypoxia: PLAN: RECOMMENDATIONS: 1. Wean supplemental oxygen to maintain saturations at or above 90%. 2. Continue remdesivir to complete 5-day treatment course. Continue to monitor liver and renal function. 3. Continue Lovenox as ordered. 4. Continue Decadron to complete 10-day treatment course. 5. D5W given hypernatremia. Hold diuretics. 6. Encourage incentive spirometer use and mobilize patient as tolerated. 7. Wean patient as tolerated from Precedex. IMPRESSIONS: 1. Acute hypoxemic respiratory failure secondary to COVID-19 pneumonia The patient presented to the hospital with approximately 10 days of symptoms having tested positive for coronavirus approximately 1 week ago. He will be continued on supplemental oxygen to maintain saturations at or above 90%. Remdesivir will be continued to complete a 5-day treatment course. We will continue to monitor liver and renal function accordingly. Decadron will be continued to complete 10 days of therapy. Lovenox will be continued as ordered. Encourage incentive spirometer use and mobilize patient as tolerated. 2. Atrial fibrillation with RVR/sinus bradycardia/QT prolongation The patient was initially noted to be in atrial fibrillation with RVR while in the emergency department, which responded to Cardizem. 3. Encephalopathy Likely metabolic in etiology and related to #1. ICU delirium is also another consideration. Continue supportive measures. CT head was unremarkable. 4. History of coronary artery disease status post CABG/carotid disease/history of tobacco dependency Complicates care, management, recovery and prognosis. Continue home medications as indicated. This note was generated with [employer] dictation software. It may contain incorrect words, spelling, and punctuation that were not noted in checking the note before signing. Subjective Subjective The patient was seen and examined at the bedside this morning. Events from the last 24 hours have been reviewed. The patient is currently afebrile, hemodynamically stable and maintaining appropriate oxygen saturations on 10 L/min via nasal cannula. He is currently being maintained on a Precedex infusion. He is currently documented to be overall net -500 mL for the hospital admission. He remains on remdesivir, Lovenox and Decadron. Sodium is elevated this morning to 151 with a potassium of 3.1. Objective Data Objective Data The patient's most recent lab work, culture data and imaging studies have all been personally reviewed. Rapid coronavirus antigen testing was positive on July 16. Blood cultures have demonstrated no growth to date. Vital Signs: Vital Signs Temp Pulse Resp BP Pulse Ox 97 F L 71 25 H 148/108 H 89 07/20/21 04:00 07/20/21 06:00 07/20/21 06:00 07/20/21 06:00 07/20/21 06:00 Oxygen Flow Rate (L/min) 10 Oxygen Delivery Method Nasal Cannula Weight: 58.1 kg Body Mass Index (BMI) 20.4 Intake & Output: Intake and Output for Last 24 Hours 07/18/21 07/19/21 07/20/21 23:59 23:59 23:59 Intake Total 871.55 / 895.05 625.44 / 648.94 309.19 / 309.19 Output Total 2120 / 2120 745 / 745 350 / 350 Balance -1248.45 / -1224.95 -119.56 / -96.06 -40.81 / -40.81 Medical Nutrition Assessment Dietitian: Malnutrition Criteria Met Start: 07/17/21 10:46 Freq: Status: Active Protocol: Document 07/19/21 11:07 (Rec: 07/19/21 11:07 [id number]) Nutrition Malnutrition Evidence of Malnutrition Exists Yes Malnutrition (severe): Social/Behavioral/ Environmental Evidenced By Suboptimal Energy Intake ( Severe),Weight Loss (Severe) Clinical Problem Chronic Disease or Condition Related Malnutrition Etiology severe, chronic malnutrition in context of social/ behavioral circumstances r/t predicted suboptimal protein/ calorie intake d/t substance abuse Signs/Symptoms as evidenced by 6.2kg/9% wt 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; 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 Lab / Micro Data Result Diagrams: 07/19/21 04:10 07/20/21 06:30 Labs: Laboratory Results - last 24 hr 07/20/21 06:30: Sodium 151 H, Potassium 3.1 L, Chloride 119 H, Carbon Dioxide 29.0, Anion Gap 3 L, BUN 29 H, Creatinine 0.58 L, Estim Creat Clear Calc 48.42, Est GFR (MDRD) Af Amer 175, Est GFR (MDRD) Non-Af 145, BUN/Creatinine Ratio 50.4 H, Glucose 180 H, Calcium 8.2 L, Total Bilirubin 0.60, AST 78 H, ALT 36, A lkaline Phosphatase 77, Total Protein 5.5 L, Albumin 2.1 L, Globulin 3.4, Albumin/Globulin Ratio 0.6 L Micro: Microbiology 07/16/21 10:12 Blood Culture (Wb) - Right Forearm Blood Culture - Preliminary No growth in 48 hours. 07/16/21 10:12 Blood Culture (Wb) - Anticubital Right Blood Culture - Preliminary No growth in 48 hours. 07/16/21 09:55 Nasal Secretion SARS-CoV-2 Antigen (Rapid) - Final SARS-CoV-2 (COVID 19) Physical Exam Const alert and no apparent distress Orientation / Consciousness: confused and disoriented HEENT normocephalic and head/scalp atraumatic Eyes PERRL and EOMs intact bilaterally Neck supple General: trachea midline Chest inspection of chest normal Resp Auscultation: diminished lung sounds; Negative for rales, rhonchi or wheezes Cardio S1 normal heart sound and S2 normal heart sound Rate: bradycardia GI normal to inspection, nondistended, normoactive bowel sounds Extremity no clubbing, cyanosis or edema Skin no rashes or lesions noted Neuro CN's II-XII intact bilaterally and no focal motor deficits Psych Activity / Motor Behavior: restless Charges/Coding Visit Charges Inpatient E&M: 90210 Subs Hosp L3
[2021-07-20] MEDS: dexAMETHasone 10 MG/ML Vial 6 MG IV (11:17)
[2021-07-20] MEDS: Enoxaparin 60 MG/0.6 ML Syringe SC ×2 (11:17→22:12)
[2021-07-20] MEDS: CHLORHEXIDINE GLUC 2% CLOTH 1 EACH TOWELETTE TOPICAL (11:18)
--- NOTE | 2021-07-20 14:32 | CASEMGMT ---
Social Work Phone call placed to pt dgt Vernell to offer support. Pt's was previously hospitalized and Vernell is providing 24 hour care to her. Vernell is flying squad salesperson for pt as well and is aware of pt condition and appreciative of nursing update. Vernell feeling somewhat overwhelmed, SW offered support. SW will remain available for further care and will continue to watch for possible SNF placement at time of discharge. CHLOÉ Bernard
[2021-07-20 15:31] LABS: Anion Gap 3 (5-15); BUN 28 mg/dL (7-18); BUN/Creat Ratio 55.6 RATIO (10-20); Calcium,Total 7.6 mg/dL (8.5-10.1); Chloride 123 mmol/L (98-107); EST Glomerular Filtration Rate 168 mL/min (>60); Est Glom Filt Rate - Afr Amer 204 mL/min (>60); Estimated Creatinine Clearance 48.42 ml/min; Glucose 220 mg/dL (74-106); Potassium 3.1 mmol/L (3.5-5.1); Sodium Level 153 mmol/L (136-145)
[2021-07-21] VITALS (19 sets, daily range): BP systolic 113–150; BP diastolic 39–97; PULSE 47–133; RESP 17–94; TEMP 36.3–37.1; O2SAT 15–99
[2021-07-21 05:25] LABS: Absolute Lymphocyte Count 0.24 X10^3/uL (0.83-4.51); Absolute Neutrophil Count 7.2 X10^3/uL (2.0-7.7); Basophil# 0.01 X10^3/uL; Basophil% 0.1 % (0-1); Hematocrit 34.6 % (40-54); Hemoglobin 11.3 g/dL (13.0-16.5); Lymphocyte # 0.24 X10^3/ul (0.83-4.51); Mean Corp Hgb Conc 32.7 g/dL (32-36); Mean Corpuscular Hgb 32.9 pg (27.0-32.0); Mean Corpuscular Volume 100.9 fL (80-94); Mean Platelet Vol. 11.3 fl (6.2-12.0); Monocyte# 0.48 X10^3/uL; NRBC Flagged by Analyzer 0 % (0-5); Neutrophil # 7.22 X10^3/uL (2.7-7.7); Neutrophil % 90.5 % (47-70); POSITIVE DIFFERENTIAL YES; Platelet Count 128 K/mm3 (150-450); RBC Distribution Width CV 12.1 % (11.6-14.6); RBC Distribution Width SD 45.5 fl (35.1-43.9); Red Blood Count 3.43 M/mm3 (4.6-6.2)
[2021-07-21 05:30] LABS: Differential Indicated SCAN CRITERIA MET
[2021-07-21 05:53] LABS: ALB/GLOB Ratio 0.6 RATIO (0.9-2.4); AST(SGOT) 50 U/L (15-37); Alanine Aminotransfer ALT/SGPT 35 U/L (16-61); Albumin, Serum 1.9 g/dL (3.2-5.0); Alkaline Phosphatase 87 U/L (45-117); Anion Gap 2 (5-15); BUN 24 mg/dL (7-18); BUN/Creat Ratio 47.8 RATIO (10-20); Chloride 121 mmol/L (98-107); EST Glomerular Filtration Rate 169 mL/min (>60); Est Glom Filt Rate - Afr Amer 205 mL/min (>60); Estimated Creatinine Clearance 48.42 ml/min; Globulin 3.4 g/dL (2.2-4.2); Glucose 207 mg/dL (74-106); Protein, Total 5.3 g/dL (6.4-8.2); Sodium Level 152 mmol/L (136-145)
[2021-07-21 06:10] LABS: Differential Comment SCANNED
--- NOTE | 2021-07-21 06:53 | PCM.PN.INT ---
Assessment & Plan Assessment/Plan (1) COVID-19: (2) Hypoxia: PLAN: RECOMMENDATIONS: 1. Wean supplemental oxygen to maintain saturations at or above 90%. 2. Continue Lovenox as ordered. 3. Continue Decadron to complete 10-day treatment course. 4. Increase D5W infusion rate. 5. Encourage incentive spirometer use and mobilize patient as tolerated. 6. Wean patient as tolerated from Precedex. 7. Plan for family meeting today to discuss goals of care. IMPRESSIONS: 1. Acute hypoxemic respiratory failure secondary to COVID-19 pneumonia The patient presented to the hospital with approximately 10 days of symptoms having tested positive for coronavirus approximately 1 week ago. He will be continued on supplemental oxygen to maintain saturations at or above 90%. The patient has completed a treatment course of remdesivir. He remains on Decadron which will be continued. Lovenox will also be continued as ordered. Encourage incentive spirometer use and mobilize patient as tolerated. 2. Atrial fibrillation with RVR/sinus bradycardia/QT prolongation The patient was initially noted to be in atrial fibrillation with RVR while in the emergency department, which responded to Cardizem. 3. Encephalopathy Likely metabolic in etiology and related to #1. ICU delirium is also another consideration. Continue supportive measures. CT head was unremarkable. 4. History of coronary artery disease status post CABG/carotid disease/history of tobacco dependency Complicates care, management, recovery and prognosis. Continue home medications as indicated. CODE status: Discussed CODE status at length including difference between FULL code, DNR-CCA and DNR-CC status. Following discussions about the differences in these status, patient's family requested DNR-CC CODE STATUS. Advanced Care Planning Face to Face Time: 13 minutes UPDATE: Following a family meeting today, the decision has been made to transition the patient to DNR comfort care and initiate palliative care measures. CODE STATUS has been updated accordingly. This note was generated with [employer] dictation software. It may contain incorrect words, spelling, and punctuation that were not noted in checking the note before signing. Subjective Subjective The patient was seen and examined at the bedside this morning. Events from the last 24 hours have been reviewed. The patient is currently afebrile, hemodynamically stable and maintaining appropriate oxygen saturations on a nonrebreather. The patient remains on a Precedex infusion. He is currently documented to be overall net -780 mL for the hospital admission. He remains on Lovenox and Decadron. Sodium remains elevated this morning at 152 with a potassium of 3.0 and chloride of 121. The patient's oxygenation status continues to worsen. He remains quite confused and disoriented. I personally met with the patient's daughter and granddaughter this morning regarding his overall clinical status. I explained my concern over his oxygenation status and her inability to utilize any form of BiPAP therapy on him given his underlying alteration in mental status. After visiting with the patient, and following a family discussion, the patient's family has elected to transition him to DNR comfort care. Palliative care measures will be employed. Objective Data Objective Data The patient's most recent lab work, culture data and imaging studies have all been personally reviewed. Rapid coronavirus antigen testing was positive on July 16. Blood cultures have demonstrated no growth to date. Vital Signs: Vital Signs Temp Pulse Resp BP Pulse Ox 97.4 F L 49 L 24 H 138/63 H 95 07/21/21 05:00 07/21/21 05:00 07/21/21 05:00 07/21/21 05:00 07/21/21 06:42 Oxygen Flow Rate (L/min) 15 Oxygen Delivery Method Nasal Cannula Weight: 59.058 kg Body Mass Index (BMI) 20.4 Intake & Output: Intake and Output for Last 24 Hours 07/19/21 07/20/21 07/21/21 23:59 23:59 23:59 Intake Total 625.44 / 648.94 978.59 / 1002.09 94.0 / 94.0 Output Total 745 / 745 1000 / 1400 400 / 400 Balance -119.56 / -96.06 -21.41 / -397.91 -306.0 / -306.0 Medical Nutrition Assessment Dietitian: Malnutrition Criteria Met Start: 07/17/21 10:46 Freq: Status: Active Protocol: Document 07/20/21 14:04 RMA (Rec: 07/20/21 14:05 RMA [id number]) Nutrition Malnutrition Evidence of Malnutrition Exists Yes Malnutrition (severe): Social/Behavioral/ Environmental Clinical Problem Chronic Disease or Condition Related Malnutrition Etiology severe, chronic malnutrition in context of social/ behavioral circumstances r/t predicted suboptimal protein/ calorie intake d/t substance abuse Signs/Symptoms as evidenced by 6.2kg/9% 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 May need to consider TF support for nutrition to prevent further energy and protein depletion. Lab / Micro Data Attestation: I reviewed the patient's lab results. Result Diagrams: 07/21/21 05:15 07/21/21 05:15 Labs: Laboratory Results - last 24 hr 07/20/21 06:30: Sodium 151 H, Potassium 3.1 L, Chloride 119 H, Carbon Dioxide 29.0, Anion Gap 3 L, BUN 29 H, Creatinine 0.58 L, Estim Creat Clear Calc 48.42, Est GFR (MDRD) Af Amer 175, Est GFR (MDRD) Non-Af 145, BUN/Creatinine Ratio 50.4 H, Glucose 180 H, Calcium 8.2 L, Total Bilirubin 0.60, AST 78 H, ALT 36, Alkaline Phosphatase 77, Total Protein 5.5 L, Albumin 2.1 L, Globulin 3.4, Albumin/Globulin Ratio 0.6 L 07/20/21 15:00: Sodium 153 H, Potassium 3.1 L, Chloride 123 H, Carbon Dioxide 27.0, Anion Gap 3 L, BUN 28 H, Creatinine 0.50 L, Estim Creat Clear Calc 48.42, Est GFR (MDRD) Af Amer 204, Est GFR (MDRD) Non-Af 168, BUN/Creatinine Ratio 55.6 H, Glucose 220 H, Calcium 7.6 L 07/21/21 05:15: Sodium 152 H, Potassium 3.0 L, Chloride 121 H, Carbon Dioxide 29.0, Anion Gap 2 L, BUN 24 H, Creatinine 0.50 L, Estim Creat Clear Calc 48.42, Est GFR (MDRD) Af Amer 205, Est GFR (MDRD) Non-Af 169, BUN/Creatinine Ratio 47.8 H, Glucose 207 H, Calcium 8.0 L, Total Bilirubin 0.60, AST 50 H, ALT 35, Alkaline Phosphatase 87, Total Protein 5.3 L, Albumin 1.9 L, Globulin 3.4, Albumin/Globulin Ratio 0.6 L 07/21/21 05:15: WBC 8.0, RBC 3.43 L, Hgb 11.3 L, Hct 34.6 L, MCV 100.9 H, MCH 32.9 H, MCHC 32.7, RDW Std Deviation 45.5 H, RDW Coeff of Jakub 12.1, Plt Count 128 L, MPV 11.3, Immature Gran % (Auto) 0.400, Neut % (Auto) 90.5 H, Lymph % (Auto) 3.0 L, [place] % (Auto) 6.0, Eos % (Auto) 0.0, Baso % (Auto) 0.1, Absolute Neuts (auto) 7.2, Absolute Lymphs (auto) 0.24 L, Nucleated RBC % 0, Differential Comment SCANNED Micro: Microbiology 07/16/21 10:12 Blood Culture (Wb) - Right Forearm Blood Culture - Preliminary No growth in 48 hours. 07/16/21 10:12 Blood Culture (Wb) - Anticubital Right Blood Culture - Preliminary No growth in 48 hours. 07/16/21 09:55 Nasal Secretion SARS-CoV-2 Antigen (Rapid) - Final SARS-CoV-2 (COVID 19) Physical Exam Const General Appearance: uncooperative and ill appearing Orientation / Consciousness: confused and disoriented Exam Limitations: altered mental status HEENT normocephalic and head/scalp atraumatic Eyes PERRL and EOMs intact bilaterally Neck supple General: trachea midline Chest inspection of chest normal Resp Effort and Inspection: tachypneic Auscultation: diminished lung sounds; Negative for rales, rhonchi or wheezes Cardio S1 normal heart sound and S2 normal heart sound Rate: bradycardia GI normal to inspection, nondistended, normoactive bowel sounds Extremity no clubbing, cyanosis or edema Skin no rashes or lesions noted Neuro moves all extremities and no focal motor deficits Psych Activity / Motor Behavior: restless Charges/Coding Visit Charges Inpatient E&M: 23559 Subs Hosp L3 Procedures Hospitalists Procedures: 28615 Advncd Care Plan 30 Min
[2021-07-21] MEDS: Enoxaparin 60 MG/0.6 ML Syringe SC (08:42)
[2021-07-21] MEDS: dexAMETHasone 10 MG/ML Vial 6 MG IV (08:42)
[2021-07-21] MEDS: CHLORHEXIDINE GLUC 2% CLOTH 1 EACH TOWELETTE TOPICAL (08:43)
[2021-07-21] MEDS: LORazepam 2 MG/ML Syringe 1 MG IV (08:48)
--- NOTE | 2021-07-21 09:29 | CASEMGMT ---
Addendum entered by Alesia Fermin 07/21/21 10:16: Social Work Vernell to be here at 1100 to see pt and speak with physician. Nursing and Dr. Ba updated. CHLOÉ Bernard Original Note: Social Work SW attended rounds. Physician requesting that pt's daughter come in to see pt and discuss care goals. Phone call to dgt Vernell. Vernell is currently caring for her mother and states she has to find someone to come be with her mother and then can come in. Vernell will arrange her schedule and call SW to inform of the time she can arrive on unit today. Nursing updated. CHLOÉ Bernard
--- NOTE | 2021-07-21 11:35 | CASEMGMT ---
Social Work Pt dgt Vernell and grand daughter Pollo present and met with physician, nurse and SW and then spent time with pt. Support provided. After time spent with pt, Vernell requesting comfort measures. Dr. Ba and PARAM Trinidad updated. SW will remain available for support as needed. CHLOÉ Bernard
[2021-07-21] MEDS: Morphine 2 MG/ML Syringe IV ×5 (12:02→18:18)
[2021-07-21] MEDS: LORazepam 2 MG/ML Syringe IV ×4 (14:42→18:17)
--- NOTE | 2021-07-21 15:39 | CASEMGMT ---
Social Work SW met with pt daughter Vernell and two granddaughters. Discussed [facility]. Vernell is uncertain if she would want this but did request that referral be made and she could speak with hospice nurse and make a decision. Phone call to Valentina at [facility] and referral made. Clinicals faxed. Valentina will review information and call Vernell. Nursing and Dr. Marni zaragoza. CHLOÉ Bernard
--- NOTE | 2021-07-21 16:10 | NURSING ---
pt very uncomfortable, agonally breathing, moving all over the bed. Medications will be given as ordered for pain and agitation. Family at bedside.
--- NOTE | 2021-07-21 16:45 | PCM.PN.HOSP ---
Subjective Subjective Patient seen and examined. Patient is on increased oxygen requirement. He has respiratory distress. His family withdrew care. Objective Data Objective Data Vital Signs: Vital Signs Temp Pulse Resp BP Pulse Ox 98.8 F 117 H 23 H 124/64 H 60 07/21/21 12:00 07/21/21 14:00 07/21/21 14:00 07/21/21 14:00 07/21/21 14:00 Oxygen Flow Rate (L/min) 5 Oxygen Delivery Method Nasal Cannula Weight: 59.1 kg Body Mass Index (BMI) 20.4 Intake & Output: Intake and Output for Last 24 Hours 07/19/21 07/20/21 07/21/21 23:59 23:59 23:59 Intake Total 625.44 / 648.94 978.59 / 1002.09 1351.98 / 1351.98 Output Total 745 / 745 1000 / 1400 475 / 475 Balance -119.56 / -96.06 -21.41 / -397.91 876.98 / 876.98 Medical Nutrition Assessment Dietitian: Malnutrition Criteria Met Start: 07/17/21 10:46 Freq: Status: Active Protocol: Document 07/21/21 10:30 RMA (Rec: 07/21/21 10:30 RMA [id number]) Nutrition Malnutrition Evidence of Malnutrition Exists Yes Malnutrition (severe): Social/Behavioral/ Environmental Evidenced By Suboptimal Energy Intake ( Severe),Weight Loss (Severe) Clinical Problem Chronic Disease or Condition Related Malnutrition Etiology severe, chronic malnutrition in context of social/ behavioral circumstances r/t predicted suboptimal protein/ calorie intake d/t substance abuse Signs/Symptoms as evidenced by 6.2kg/9% 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 TF support to prevent further energy and protein depletion especially if pt continues to be unable to take PO nutrition . TF vs. PO---will monitor NPO duration, wt, labs and follow- up given medical plan moving forward. Lab / Micro Data Result Diagrams: 07/21/21 05:15 07/21/21 05:15 Labs: Laboratory Results - last 24 hr 07/21/21 05:15: Sodium 152 H, Potassium 3.0 L, Chloride 121 H, Carbon Dioxide 29.0, Anion Gap 2 L, BUN 24 H, Creatinine 0.50 L, Estim Creat Clear Calc 48.42, Est GFR (MDRD) Af Amer 205, Est GFR (MDRD) Non-Af 169, BUN/Creatinine Ratio 47.8 H, Glucose 207 H, Calcium 8.0 L, Total Bilirubin 0.60, AST 50 H, ALT 35, Alkaline Phosphatase 87, Total Protein 5.3 L, Albumin 1.9 L, Globulin 3.4, Albumin/Globulin Ratio 0.6 L 07/21/21 05:15: WBC 8.0, RBC 3.43 L, Hgb 11.3 L, Hct 34.6 L, MCV 100.9 H, MCH 32.9 H, MCHC 32.7, RDW Std Deviation 45.5 H, RDW Coeff of Jakub 12.1, Plt Count 128 L, MPV 11.3, Immature Gran % (Auto) 0.400, Neut % (Auto) 90.5 H, Lymph % (Auto) 3.0 L, [place] % (Auto) 6.0, Eos % (Auto) 0.0, Baso % (Auto) 0.1, Absolute Neuts (auto) 7.2, Absolute Lymphs (auto) 0.24 L, Nucleated RBC % 0, Differential Comment SCANNED Micro: Microbiology 07/16/21 10:12 Blood Culture (Wb) - Right Forearm Blood Culture - Final No growth in 5 days. 07/16/21 10:12 Blood Culture (Wb) - Anticubital Right Blood Culture - Final No growth in 5 days. 07/16/21 09:55 Nasal Secretion SARS-CoV-2 Antigen (Rapid) - Final SARS-CoV-2 (COVID 19) Physical Exam Narrative Physical exam: General: Alert, Oriented x3, lethargy, in moderate respiratory distress, on nonrebreather mask HEENT: Atraumatic Oral: Dry mucosa Neck: Supple Lungs: Diminished to auscultation Cardiovascular: HS I+II, regular, no murmurs Abdomen: Bowel Sounds Present, Soft, Non Tender Extremities: No edema Assessment & Plan Assessment/Plan (1) COVID-19: (2) Atrial fibrillation with rapid ventricular response: (3) Hypotension: QUALIFIERS: Hypotension type: unspecified hypotension type Qualified Code(s): I95.9 - Hypotension, unspecified (4) Metabolic encephalopathy: PLAN: 1. Acute hypoxic respiratory failure secondary to acute COVID-19 pneumonia, worsening On nonrebreather max Chest x-ray today shows progressive right upper lobe pneumonia as well as left lower lung Continue to wean off 2. Acute COVID-19 pneumonia, severe with resp failure Patient is unvaccinated;symptoms started on 07/07 Continue on dexamethasone and remdesivir 3. Acute metabolic encephalopathy likely secondary to acute alcohol withdrawal -although patient states more than 72 hours post admission. Daughter reports seen NyQuil bottles empty Off Precedex drip, Continue on IV thiamine 4. Atrial fibrillation with RVR new onset, eesolved Secondary to #1 and 2, in normal sinus rhythm In normal sinus rhythm, cardioverted on 07/16 CHADS VASC 4, Off amiodarone drip, Continue on therapeutic Lovenox Echo shows normal LV size and EF 60% 5. Hypotension, resolved Charges/Coding Visit Charges Inpatient E&M: 16577 [facility] Hosp L3
[2021-07-21] MEDS: 0.9% Saline Lock 10 ML Syringe IV (18:19)
--- NOTE | 2021-07-22 07:45 | PCM.DEATH ---
Preliminary Cause of Preliminary Cause of Preliminary Cause of : Acute COVID-19 pneumonia Acute hypoxic respiratory failure Date of Admission: 07/16/21 Date of : 07/21/21 Principle Diagnosis Acute hypoxic respiratory failure secondary to acute COVID-19 pneumonia A. fib with RVR Sinus bradycardia QT prolongation Severe chronic malnutrition, secondary to current illness Problem List: Active and Suspected Problems (Updated 07/16/21 @ 15:[address] Arnav Galvez, DO) Metabolic encephalopathy (Acute) Hypotension (Acute) COVID-19 (Acute) Hypoxia (Acute) New onset a-fib (Acute) Atrial fibrillation with rapid ventricular response (Acute) Hospital Course -year-old with past medical history of CAD status post CABG, bilateral carotid stenosis who comes in with 9 days of feeling unwell. Patient was reported as more confused and short of breath. In the ED, he was found to be hypoxic. He developed A. fib with RVR with hypotension. He was started on dexamethasone, received IV fluids, and also 10 mg of IV diltiazem. Patient was not vaccinated. CTA of the chest was negative for acute PE. Patient was at to the ICU on account of hypotension. Patient was started on IV remdesivir, Decadron. He was continued on oxygen. He subsequently was started on Precedex for worsening confusion. He had received Haldol and Zyprexa earlier on. Patient became progressively hypoxic, required use of nonrebreather mask. His heart rate became better controlled. 2D echo showed EF of 60%. With his progressive oxygen requirement/respiratory failure, family were called in and did not want patient intubated. Comfort measures were put in. Patient at 1935 Assessment & Plan Assessment/Plan (1) Metabolic encephalopathy: (2) Hypotension: QUALIFIERS: Hypotension type: unspecified hypotension type Qualified Code(s): I95.9 - Hypotension, unspecified (3) COVID-19: (4) Hypoxia: (5) New onset a-fib: (6) Atrial fibrillation with rapid ventricular response: (7) Nicotine dependence: QUALIFIERS: Nicotine product type: cigarettes (8) Bilateral carotid artery stenosis: (9) Severe malnutrition: Visit Charges Inpatient E&M: 82439 Disch Hosp
== END 2021-07-21 21:10 | DRG 177 ==
LOC: ED 13:20 → ICU 14:55 → MS3 07-21 18:39
PROVIDERS: Hospitalist; Internal Medicine Critical Care Medicine; Emergency Provider Emergency Medicine; PCP Family Medicine; Visit Provider Internal Medicine
DX: U07.1 COVID-19 (principal); J12.82 Pneumonia due to coronavirus disease 2019; J96.01 Acute respiratory failure with hypoxia; E43 Unspecified severe protein-calorie malnutrition; G93.41 Metabolic encephalopathy; J44.0 Chronic obstructive pulmonary disease with (acute) lower respiratory infection; F10.239 Alcohol dependence with withdrawal, unspecified; I48.91 Unspecified atrial fibrillation; R94.31 Abnormal electrocardiogram [ECG] [EKG]; R00.1 Bradycardia, unspecified; F17.210 Nicotine dependence, cigarettes, uncomplicated; Z68.22 Body mass index [BMI] 22.0-22.9, adult; I95.9 Hypotension, unspecified; I25.10 Atherosclerotic heart disease of native coronary artery without angina pectoris; Z79.899 Other long term (current) drug therapy; E87.6 Hypokalemia; Z95.1 Presence of aortocoronary bypass graft; Z66 Do not resuscitate; I65.23 Occlusion and stenosis of bilateral carotid arteries
CPT/HCPCS: 36415; 36569; 36600; 70450; 71045; 71275; 80048; 80053; 80076; 81001; 82803; 83605; 84075; 84484; 85025; 85379; 87040; 87426; 93005; 93308; 94760; 97162; 97166; 99285; J7030; J7040; J7050; Q9967; A4216; J1940; J3486; J3490